=== PATIENT | male | born 1950 | race Caucasian/White ===

== ENCOUNTER 2021-09-27 12:43 | Outpatient (CLI) | payer OTHER, SELFPAY ==
--- NOTE | 2021-10-03 12:16 | WPDHOLTEREM ---
Holter/Event Monitor Holter/Event Monitor Date of procedure: 10/03/21 Holter/Event Procedure: 48 Hr Holter Monitor Diagnosis: Dizziness Indications: Dizziness Image/Tracing Quality: Favorable Finding: The basic rhythm is sinus with normal MA QRS and QT interval. The heart rate varies from a minimum of 45 to a maximum of 130. The average heart rate was 75. There were no abrupt pauses identified and there were no examples of abnormal AV conduction. Supraventricular ectopic activity was rare. A total of 19 PACs were seen during this 48 hour examination. There were no atrial runs and there were no examples of atrial fibrillation No ventricular ectopic activity of any kind occurred during this exam The patient returned a symptom diary in which no entries were made, presumably he was asymptomatic Conclusion: 1. Essentially unremarkable 48 hour Holter monitor Toni Dewitt MD [facility]
== END 2021-09-27 12:44 | disposition home or self-care (01) ==
PROVIDERS: PCP Family Medicine; Visit Provider Student in an Organized Health Care Education/Training Program
DX: R42 Dizziness and giddiness (principal)
CPT/HCPCS: 93225; 93226

== ENCOUNTER 2022-02-02 09:04 | Outpatient (CLI) | payer OTHER, SELFPAY ==
[2022-02-02 09:25] LABS: Hematocrit 47.6 % (42.0-52.0); Hemoglobin 15.7 g/dL (14.0-18.0); Mean Corpuscular Hemoglobin 28.8 pg (26-34); Mean Corpuscular Volume 87.2 fl (80-100); Mean Platelet Volume 10.9 fl (7.4-10.4); Platelet Count Result 177 k/mm3 (150-375); Red Blood Count 5.46 M/mm3 (4.6-6.20); Red Cell Distribution Width 13.5 % (11.5-14.5); White Blood Count 6.9 K/mm3 (4.5-10.0)
[2022-02-02 09:37] LABS: Alanine Aminotransferase 38 U/L (6-50); Albumin Level 4.6 g/dL (3.5-5.1); Alkaline Phosphatase 78 U/L (38-126); Anion Gap 9 mmol/L (8-16); Aspartate Amino Transferase 37 U/L (17-59); Bilirubin,Total 0.9 mg/dL (0.2-1.3); Blood Urea Nitrogen 22 mg/dL (9-20); Calcium 8.9 mg/dL (8.4-10.2); Carbon Dioxide 26 mmol/L (22-30); Chloride 105 mmol/L (98-107); Cholesterol 174 mg/dL (0-200); Estimated Glomerular Filt Rate 54; Glucose 117 mg/dL (65-110); HDL Direct 39 mg/dL; Potassium 4.3 mmol/L (3.4-5.0); Sodium 140 mmol/L (137-145); Triglycerides 210 mg/dL (<150)
[2022-02-02 09:48] LABS: LDL Cholesterol Direct 90 mg/dL
[2022-02-02 10:07] LABS: Prostate Specific Antigen 1.6 ng/mL (< OR = 4.0)
[2022-02-02 10:37] LABS: Creatinine Urine 191.5 mg/dL
[2022-02-02 10:42] LABS: MALB Creatinine Ratio 19.9 mg/g (0-30); Microalbumin Urine Random 38.2 mg/L (0-16.7)
[2022-02-02 11:24] LABS: Hemoglobin A1C 6.2 % (<5.7)
== END 2022-02-02 09:05 | disposition home or self-care (01) ==
LOC: ANHLAB 09:07
PROVIDERS: PCP Family Medicine; Visit Provider Family Medicine
DX: E78.2 Mixed hyperlipidemia (principal); E11.9 Type 2 diabetes mellitus without complications; Z12.5 Encounter for screening for malignant neoplasm of prostate; Z13.220 Encounter for screening for lipoid disorders
CPT/HCPCS: 36415; 80048; 80061; 80076; 82043; 83036; 84153; 85027; G0103

== ENCOUNTER 2023-02-07 08:18 | Outpatient (CLI) | payer OTHER, SELFPAY ==
[2023-02-07 09:15] LABS: Hematocrit 48.3 % (42.0-52.0); Hemoglobin 15.2 g/dL (14.0-18.0); Mean Corpuscular HGB Conc 31.5 g/dl (32-36); Mean Platelet Volume 10.8 fl (7.4-10.4); Platelet Count Result 185 k/mm3 (150-375); Red Blood Count 5.43 M/mm3 (4.6-6.20); Red Cell Distribution Width 14.8 % (11.5-14.5); White Blood Count 6.2 K/mm3 (4.5-10.0)
[2023-02-07 09:53] LABS: Vitamin D 25 Hydroxy 83.8 ng/mL
[2023-02-07 09:54] LABS: LDL Cholesterol Direct 79 mg/dL
[2023-02-07 10:08] LABS: Alanine Aminotransferase 41 U/L (6-50); Albumin Level 4.4 g/dL (3.5-5.1); Alkaline Phosphatase 85 U/L (38-126); Anion Gap 9 mmol/L (8-16); Aspartate Amino Transferase 38 U/L (17-59); Bilirubin,Total 1.2 mg/dL (0.2-1.3); Blood Urea Nitrogen 24 mg/dL (9-20); Calcium 9.2 mg/dL (8.4-10.2); Carbon Dioxide 29 mmol/L (22-30); Chloride 104 mmol/L (98-107); Cholesterol 167 mg/dL (0-200); Estimated Glomerular Filt Rate 50; Glucose 113 mg/dL (65-110); HDL Direct 51 mg/dL; Potassium 4.6 mmol/L (3.4-5.0); Sodium 142 mmol/L (137-145); Triglycerides 132 mg/dL (<150)
[2023-02-07 10:17] LABS: MALB Creatinine Ratio 25.8 mg/g (0-30)
[2023-02-08 17:07] LABS: Prostate Specific Antigen 1.6 ng/mL (< OR = 4.0)
== END 2023-02-07 08:19 | disposition home or self-care (01) ==
LOC: ANHLAB 08:20
PROVIDERS: PCP Family Medicine; Visit Provider Family Medicine
DX: E11.21 Type 2 diabetes mellitus with diabetic nephropathy (principal); E78.2 Mixed hyperlipidemia; R25.1 Tremor, unspecified; E55.9 Vitamin D deficiency, unspecified; Z13.220 Encounter for screening for lipoid disorders; Z12.5 Encounter for screening for malignant neoplasm of prostate
CPT/HCPCS: 36415; 80048; 80061; 80076; 82043; 82306; 83036; 84153; 84443; 85027; G0103

== ENCOUNTER 2023-05-02 08:17 | Outpatient (CLI) | payer OTHER, SELFPAY ==
--- NOTE | ~2023-05-02 | US_ITS ---
EXAMINATION: US renal BI DATE: 05/02/2023 09:47 INDICATION: Stage IIIa chronic kidney disease TECHNIQUE: Multiple ultrasound grayscale images of the kidneys were obtained. COMPARISON: None. FINDINGS: The right kidney measures 10.2 x 5.5 x 4.5 cm. The left kidney measures 9.8 x 6.1 x 5.1 cm. The kidne ys demonstrate normal echogenicity. There is no hydronephrosis in either kidney. No stones identifie d. Prostatomegaly which impresses upon the base of the otherwise normal-appearing bladder. IMPRESSION: 1. Normal kidneys without hydronephrosis. Reviewed, dictated and finalized at location A. R MENDER
== END 2023-05-02 08:18 | disposition home or self-care (01) ==
PROVIDERS: PCP Family Medicine; Visit Provider Internal Medicine Nephrology
DX: N18.31 Chronic kidney disease, stage 3a (principal); E11.9 Type 2 diabetes mellitus without complications
CPT/HCPCS: 76775

== ENCOUNTER 2023-05-15 10:35 | Outpatient (CLI) | payer OTHER, SELFPAY ==
[2023-05-15 11:17] LABS: Albumin Level 4.2 g/dL (3.5-5.1); Anion Gap 8 mmol/L (8-16); Blood Urea Nitrogen 19 mg/dL (9-20); Calcium 9.2 mg/dL (8.4-10.2); Carbon Dioxide 25 mmol/L (22-30); Chloride 106 mmol/L (98-107); Estimated Glomerular Filt Rate > 60; Glucose 111 mg/dL (65-110); Phosphorus 3.5 mg/dL (2.5-4.5); Potassium 4.2 mmol/L (3.4-5.0); Sodium 139 mmol/L (137-145)
[2023-05-15 11:19] LABS: Creatinine Urine 157.4 mg/dL; Total Protein Urine Random 8 mg/dL; Ur Ttl Prot Creatinine Ratio 0.05 mg/mg (0-0.20)
[2023-05-15 11:22] LABS: Sodium Urine Random 87 meq/L
[2023-05-15 11:26] LABS: Complement C3 134 mg/dL (88-165)
[2023-05-17 20:24] LABS: Anti Glomerular Basement Memb <1.0 AI (<1.0)
[2023-05-18 16:49] LABS: Albumin 3.8 g/dL (3.8-4.8); Alpha 1 Globulin 0.2 g/dL (0.2-0.3); Alpha 2 Globulin 0.9 g/dL (0.5-0.9); Beta 1 Globulin 0.4 g/dL (0.4-0.6); Protein, Total 6.7 g/dL (6.1-8.1)
[2023-05-20 21:42] LABS: ANCA Screen Negative (Negative)
[2023-05-21 00:23] LABS: Creatinine, Random Urine 146 mg/dL (20-320); Total Protein/Creatinine Ratio 75 mg/g creat (25-148)
== END 2023-05-15 10:36 | disposition home or self-care (01) ==
PROVIDERS: PCP Family Medicine; Visit Provider Internal Medicine Nephrology
DX: E11.9 Type 2 diabetes mellitus without complications (principal); N18.31 Chronic kidney disease, stage 3a
CPT/HCPCS: 36415; 80069; 82570; 83520; 84155; 84156; 84165; 84166; 84300; 86036; 86038; 86160; 86225

== ENCOUNTER 2023-11-20 12:15 | Outpatient (CLI) | payer OTHER, SELFPAY ==
[2023-11-20 13:06] LABS: Albumin Level 4.4 g/dL (3.5-5.1); Anion Gap 11 mmol/L (4-12); Blood Urea Nitrogen 16 mg/dL (9-20); Calcium 9.1 mg/dL (8.4-10.2); Carbon Dioxide 27 mmol/L (22-30); Chloride 100 mmol/L (98-107); Estimated Glomerular Filt Rate 59; Glucose 141 mg/dL (65-110); Phosphorus 2.8 mg/dL (2.5-4.5); Potassium 3.9 mmol/L (3.4-5.0); Sodium 138 mmol/L (137-145)
[2023-11-20 13:06] LABS: Creatinine Urine 80.6 mg/dL; Total Protein Urine Random 9 mg/dL; Ur Ttl Prot Creatinine Ratio 0.11 mg/mg (0-0.20)
== END 2023-11-20 12:16 | disposition home or self-care (01) ==
LOC: ANHLAB 12:17
PROVIDERS: PCP Family Medicine; Visit Provider Internal Medicine Nephrology
DX: I12.9 Hypertensive chronic kidney disease with stage 1 through stage 4 chronic kidney disease, or unspecified chronic kidney disease (principal); N18.2 Chronic kidney disease, stage 2 (mild); E11.22 Type 2 diabetes mellitus with diabetic chronic kidney disease
CPT/HCPCS: 36415; 80069; 82570; 84156

== ENCOUNTER 2024-01-08 08:06 | Outpatient (CLI) | payer OTHER, SELFPAY ==
--- NOTE | 2024-01-08 13:05 | WPDPFTINT ---
PFT Procedure Performed PFT Procedure Performed Spirometry with Pre/Post Bronchodilator Plethysmography (Lung Vol) Diffusing Cap (DLCO) Flow Vol Loop PFT Interpretation This is a pulmonary function test with pre and post-bronchodilator spirometry, plethysmography and diffusing capacity. The test was performed and results interpreted in accordance with the 2019 and 2005 ATS/ERS Task Force guidelines respectively using the Global Lung Function Initiative-2012 reference equations. Patient demonstrated good effort and cooperation. Reproducibility criteria were met. The quality of the pre bronchodilator spirometry maneuver was Grade B and post bronchodilator spirometry maneuver was Grade A. Findings: Spirometry: The contour the inspiratory and expiratory flow tracing are normal. The pre bronchodilator FVC is 2.82 L, 71% predicted. The pre bronchodilator FEV1 is 2.33 L, 78% predicted. The pre bronchodilator FEV1: FVC ratio is 82%. The post bronchodilator FVC is 3.27 L, representing a 16% increase. The post bronchodilator FEV1 is 2.62 L, representing a 13% increase. The post bronchodilator FEV1: FVC ratio is 80%. Plethysmography: The total lung capacity is 6.63 L, 97% predicted. The functional residual capacity is 3.41 L, 94% predicted. The residual volume is 3.25 L, 131% predicted. The residual volume: Total lung capacity ratio is 49%. Diffusing capacity: The diffusing capacity unadjusted for hemoglobin and carboxyhemoglobin is 19.0, 76% predicted. The diffusing capacity adjusted for alveolar volume is 3.65, 94% predicted. Impression: The spirometry is normal without evidence of an obstructive abnormality. The increase in residual volume to total lung volume ratio is consistent with hyperinflation. The FEV1 is normal with a mildly decreased FVC without and obstructive or restrictive abnormality. This is an abnormal but nonspecific finding. There is significant improvement after inhaling a single dose of albuterol. The diffusing capacity is normal. There are no prior studies for comparison
== END 2024-01-08 08:07 | disposition home or self-care (01) ==
PROVIDERS: PCP Family Medicine; Visit Provider Family Medicine
DX: J44.9 Chronic obstructive pulmonary disease, unspecified (principal); R06.09 Other forms of dyspnea
CPT/HCPCS: 94060; 94726; 94729

== ENCOUNTER 2024-02-11 09:43 | Outpatient (CLI) | payer OTHER, SELFPAY ==
[2024-02-11 10:05] LABS: Hematocrit 43.6 % (42.0-52.0); Hemoglobin 14.9 g/dL (14.0-18.0); Mean Corpuscular HGB Conc 34.2 g/dl (32-36); Mean Corpuscular Hemoglobin 29.1 pg (26-34); Mean Corpuscular Volume 85.2 fl (80-100); Mean Platelet Volume 10.6 fl (7.4-10.4); Platelet Count Result 188 k/mm3 (150-375); Red Blood Count 5.12 M/mm3 (4.6-6.20); Red Cell Distribution Width 13.2 % (11.5-14.5); White Blood Count 4.9 K/mm3 (4.5-10.0)
[2024-02-11 10:14] LABS: Alanine Aminotransferase 42 U/L (6-50); Albumin Level 4.5 g/dL (3.5-5.1); Alkaline Phosphatase 87 U/L (38-126); Aspartate Amino Transferase 40 U/L (17-59); Bilirubin,Total 0.8 mg/dL (0.2-1.3); Cholesterol 149 mg/dL (0-200); HDL Direct 40 mg/dL; Triglycerides 285 mg/dL (<150)
[2024-02-11 10:25] LABS: LDL Cholesterol Direct 65 mg/dL
[2024-02-11 10:45] LABS: Prostate Specific Antigen 1.7 ng/mL (< OR = 4.0)
== END 2024-02-11 09:44 | disposition home or self-care (01) ==
LOC: ANHLAB 09:44
PROVIDERS: PCP Family Medicine; Visit Provider Family Medicine
DX: N18.31 Chronic kidney disease, stage 3a (principal); E11.22 Type 2 diabetes mellitus with diabetic chronic kidney disease; E78.2 Mixed hyperlipidemia; R06.09 Other forms of dyspnea; Z12.5 Encounter for screening for malignant neoplasm of prostate; Z13.220 Encounter for screening for lipoid disorders
CPT/HCPCS: 36415; 80061; 80076; 84153; 84443; 85027; G0103

== ENCOUNTER 2024-05-01 10:26 | Outpatient (CLI) | payer OTHER, SELFPAY ==
[2024-05-01 10:50] LABS: Basophils Percent Auto 0.6 % (0.2-1.2); Eosinophils Absolute Auto 0.2 K/mm3 (0-0.3); Eosinophils Percent Auto 3.2 % (0-4.4); Hematocrit 40.5 % (42.0-52.0); Hemoglobin 13.1 g/dL (14.0-18.0); Immature Granulocyte Absolute 0.03 K/mm3 (0.00-0.031); Immature Granulocyte Percent A 0.5 % (0-0.5); Lymphocytes Absolute Auto 0.98 K/mm3 (0.9-3.2); Lymphocytes Percent Auto 15.9 % (18.3-44.2); Mean Corpuscular HGB Conc 32.3 g/dl (32-36); Mean Corpuscular Hemoglobin 27.8 pg (26-34); Mean Platelet Volume 10.3 fl (7.4-10.4); Monocytes Absolute Auto 0.6 K/mm3 (0.1-0.6); Monocytes Percent Auto 10.4 % (2.6-8.5); Neutrophils Absolute Auto 4.3 K/mm3 (1.3-6.7); Neutrophils Percent Auto 69.4 % (45.5-73.1); Platelet Count Result 216 k/mm3 (150-375); Red Blood Count 4.71 M/mm3 (4.6-6.20); Red Cell Distribution Width 13.2 % (11.5-14.5); White Blood Count 6.2 K/mm3 (4.5-10.0)
[2024-05-01 11:01] LABS: Alanine Aminotransferase 35 U/L (6-50); Albumin Level 4.1 g/dL (3.5-5.1); Alkaline Phosphatase 90 U/L (38-126); Anion Gap 9 mmol/L (4-12); Aspartate Amino Transferase 32 U/L (17-59); Bilirubin,Total 0.7 mg/dL (0.2-1.3); Blood Urea Nitrogen 23 mg/dL (9-20); Calcium 8.8 mg/dL (8.4-10.2); Carbon Dioxide 27 mmol/L (22-30); Chloride 105 mmol/L (98-107); Estimated Glomerular Filt Rate > 60; Glucose 117 mg/dL (65-110); Potassium 4.2 mmol/L (3.4-5.0); Sodium 141 mmol/L (137-145)
--- OUTSIDE RECORDS SUMMARY | 2024-05-02 04:19 | XMS_ITS | Referral Summary ---
Author Organization [facility] [place] [address] Address [address] [place] [address] Care Team Providers Care Dual Hose Cementer Name Role Phone Cristi Toledo MD Primary Care Provider + [phone] Allergies No known active allergies Medications aspirin 81 mg enteric coated tablet Take 1 tablet (81 mg total) by mouth daily 2 Active nitroglycerin (NITROSTAT) 0.[address] 1 tablet (0.4 mg total) under the tongue every 5 (five) minutes as needed 2 Active metFORMIN XR (GLUCOPHAGE XR) 500 mg 24 hr tablet Take 1 tablet (500 mg total) by mouth daily 2 Active rosuvastatin (CRESTOR) 40 mg tablet Take 1 tablet (40 mg total) by mouth nightly at bedtime 2 Active omeprazole (PriLOSEC) 20 mg capsule Take 1 tablet by mouth daily 2 Active cholecalciferol (VITAMIN D-3) 25 mcg (1,000 unit) tablet Take 1 tablet (1,000 Units total) by mouth daily 9 Active multivitamin with minerals tablet Take 1 tablet by mouth daily Active metoprolol XL (TOPROL-XL) 25 mg extended release tablet Take 0.5 tablets (12.5 mg total) by mouth daily 15 tablet 3 Active losartan (COZAAR) 25 mg tablet Take 1 tablet (25 mg total) by mouth daily Active triamcinolone (KENALOG) 0.5 % cream Apply topically 2 (two) times a day APPLY TO AFFECTED AREA 4 Active Active Problems Problem Noted Date Diagnosed Date H/O syncope 05/16/2022 Coronary artery disease invo lving [place] coronary artery of [place] heart without angina pectoris 02/07/2022 Hypertension associated with diabetes 02/07/2022 Mixed diabetic hyperlipidemi a associated with type 2 diabetes mellitus 02/07/2022 S/P coronary artery stent placement 02/07/2022 Social History Tobacco Use Types Packs/Day Years Used Date Smoking Tobacco: Never Tobacco Cessation:Counseling Given: Not Answered Personal Safety Answer Date Recorded Getting School Help Needed Not on file 06/23 Sex and Gender Information Value Date Recorded Sex Assigned at Not on file Legal Sex Male 1:59 PM CDT Gender Identity Not on file Sexual Orientation Not on file Last Filed Vital Signs Vital Sign Reading Time Taken Comments Blood Pressure 110/64 07/23/2023 10:32 AM CDT Pulse 82 07/23/2023 10:32 AM CDT Temperature - - Respiratory Rate 16 02/07/2022 8:25 AM CDT Oxygen Saturation 92% 07/23/2023 10:32 AM CDT Inhaled Oxygen Concentration - - Weight 96.6 kg (213 lb) 07/23/2023 10:32 AM CDT Height 177.8 cm (5' 10 ) 07/23/2023 10:32 AM CDT Body Mass Index 30.56 07/23/2023 10:32 AM CDT Plan of Treatment Not on file Procedures Procedure Name Priority Date/Time Associated Diagnosis Comments POCT LIPID PANEL Routine 01/19/2023 12:2 8 PM CDT Coronary artery disease involving [place] coronary artery of [place] heart without angina pectoris Mixed diabetic hyperlipidemia associated with type 2 diabetes mellitus (HCC) from Last 3 Months or Most Recently Relevant to Health Maintenance Results * POCT lipid panel (01/19/2023 12:28 PM CDT) Cholesterol, POC 128 mg/dL Comment:GLU = 115 HDL, POC 37 mg/dL Triglycerides, POC 216 mg/dL LDL Cholesterol POC 48 mg/dL Chol/HDL Ratio, POC 1.3 Non-HDL Cholesterol, POC 91 mg/dL Cholesterol Total, POC 128 mg/dL Capillary blood 01/19/2023 1 2:28 PM CDT Tino Cortez MD POINT OF CARE TEST ORDER MAX Final Result from Last 3 Months or Most Recently Relevant to Health Maintenance Insurance [facility] Care Teams Dual Hose Cementer Relationship Specialty Start Date End Date Cristi Toledo MD PCP - General Family Medicine 09/27/21
--- OUTSIDE RECORDS SUMMARY | 2024-05-02 04:19 | XMS_ITS | Clinical Summary ---
Author Organization [facility] Address [address] [place] [address] Phone Care Team Providers Care Positive Printer Operator Name Role Phone Unavailable Primary Care Provider Unavailabl e Allergies No known active allergies Medications No known medications Social History Tobacco Use Types Packs/Day Years Used Date Smoking Tobacco: Unknown Tobacco Cessation:Counseling Given: Not Answered Sex and Gender Information Value Date Recorded Sex Assigned at Not on file Legal Sex Male 12:00 PM CDT Gender Identity Not on file Sexual Orientation Not on file Last Filed Vital Signs Vital Sign Reading Time Taken Comments Blood Pressure 113/69 02/03/2022 1:41 PM CDT Pulse 71 02/03/2022 12:37 PM CDT Temperature 36.4 ??C (97.6 ??F) 02/03/2022 12:11 PM C DT Respiratory Rate 14 02/03/2022 1:41 PM CDT Oxygen Saturation 93% 02/03/2022 1:41 PM CDT Inhaled Oxygen Concentration - - Weight 93 kg (205 lb) 02/03/2022 12:11 PM CDT Height 177.8 cm (5' 10 ) 02/03/2022 12:11 PM CDT Body Mass Index 29.41 02/03/2022 12:11 PM CDT Plan of Treatment Health Maintenance Due Date Last Done Comments DIABETES ANNUAL FOOT EXAM 1967 DIABETES ANNUAL RETINAL EXAM 1967 DIABETES MICROALBUMIN ANNUAL SCREEN 1967 LDL CHOLESTEROL ANNUAL 1967 DTAP/TDAP/TD VACCINES (1 - Tdap) 1968 COLORECTAL SCREENING 1994 Colorectal Cancer Screening 1994 FIT-DNA Q 3 years 1994 FIT/FOBT Q 1 year 1994 Flex Sig/CT Colonography Q 5 years 1994 ZOSTER VACCINE (1 of 2) 1999 DIABETES HBA1C Q 6 MONTHS 02/04/2021 08/05/2020 INFLUENZA VACCINE (#1) 2023 RSV VACCINE (60+ or ) (1 - 1-dose 75+ series) 2024 PNEUMOCOCCAL VACCINE 65+ YEARS Completed 10/08/2018 , 09/22/2016 Insurance [facility]
--- OUTSIDE RECORDS SUMMARY | 2024-05-02 04:19 | XMS_ITS | Clinical Summary ---
Author Organization [facility] [place] [address] Address [address] [place] [address] Care Team Providers Care Medical Clinic Manager Name Role Phone Cristi Toledo MD Primary Care Provider + [phone] Allergies No known active allergies Medications aspirin [...] syncope 05/16/2022 Coronary artery disease invo lving [place] coronary artery of [place] heart without angina pectoris 02/07/2022 Hypertension associated with diabetes 02/07/2022 Mixed diabetic hyperlipidemi a associated with type 2 diabetes mellitus 02/07/2022 S/P coronary artery stent placement 02/07/2022 Surgical History Surgery Date Site/Laterality Comments CARDIAC CATHETERIZATION CORONARY ANGIOPLASTY Medical History Medical History Date Comments Hyperlipidemia Hypertension Diabetes mellitus (HCC) Coronary artery disease Family History Medical History Relation Name Comments blood disease Brother Heart disease Father Other Half-Brother Heart disease Mother Relation Name Status Comments Brother Father Half-Brother Mother Social History Tobacco Use Types Packs/Day Years Used Date Smoking Tobacco: Never Tobacco Cessation:Counseling Given: Not Answered Personal Safety Answer Date Recorded Getting School Help Needed Not on file 06/23 Sex and Gender Information Value Date Recorded Sex Assigned at Not on file Legal Sex Male 1:59 PM CDT Gender Identity Not on file Sexual Orientation Not on file Obstetrics History Last Filed Vital Signs Vital Sign Reading [...] 07/23/2023 10:32 AM CDT Plan of Treatment Health Maintenance Due Date Last Done Comments Albumin Creatinine Ratio, Urine 1949 Colon Cancer Screening-Colonoscopy 1949 Depression Screening 1949 Fall Risk Assessment 1949 Hemoglobin A1C 1949 Hepatitis C Screening 1949 eGFR 1949 Dilated Eye Exam 1949 Foot Exam 1949 DTaP/Tdap/Td Vaccine (1 - Tdap) 1960 Hepatitis B Screening 1967 Zoster Vaccine (1 of 2) 1999 Well Visit 65+ 2014 Covid-19 Vaccine (3 - 2024-25 season) 2023, 04/11/2021 Influenza Vaccine (#1) 2023 Lipid Panel 01/20/2024 01/19/2023, 07/15/2021 Pneumococcal vaccine 65+ Completed 10/08/2018, 09/07 Procedures Procedure Name Priority Date/Time Associated Diagnosis Comments POCT LIPID PANEL Routine 01/19/2023 12:2 8 PM CDT Coronary artery disease involving [place] coronary artery of [place] heart without angina pectoris Mixed diabetic hyperlipidemia [...] Most Recently Relevant to Health Maintenance Insurance [facility] Care Teams Medical Clinic Manager Relationship Specialty Start Date End Date Cristi Toledo MD PCP - General Family Medicine 09/27/21
--- OUTSIDE RECORDS SUMMARY | 2024-05-02 04:19 | XMS_ITS | Clinical Summary ---
Author Organization [facility] Address [address] [place] [address] [place] [address] Care Team Providers Care Family Specialist Name Role Phone Galen Turcios DO Primary Care Provider + Giorgio Fernandes MD Unavailable [phone] Allergies No known active allergies Medications Blood Glucose Monitoring Suppl (BLOOD GLUCOSE MONITOR SYSTEM) w/Device KitIndications:T ype 2 diabetes mellitus without complication, without long-term current use of insulin ([facility]) 1 Units by Does not apply route daily. 1 kit 9 Active vitamin D3, cholecalciferol, 1000 UNIT Tab tablet Take 1 tablet (1,000 Units total) by mouth daily. 9 Active Melatonin 10 MG Cap Active rosuvastatin 40 MG tablet Take 1 tablet (40 mg total) by mouth nightly at bedtime. 90 tablet 4 1 Active Microlet Lancets MiscIndications: Type 2 diabetes mellitus without complication, without long-term current use of insulin ([facility]) USE TO TEST FOUR TIMES DAILY NEEDED *PT NEEDS APPT FOR FURTHER REFILLS* 400 each 3 1 Active ASPIRIN EC 81 MG tablet Take 81 mg by mouth daily. 2 Active metoprolol succinate ER (TOPROL-XL) 25 MG 24 hr tablet TAKE 1 TABLET BY MOUTH EVERY DAY 90 tablet 3 2 Active omeprazole (PRILOSEC) 20 MG capsule TAKE 1 CAPSULE BY MOUTH EVERY DAY 90 capsule 1 2 Active metFORMIN ER (GLUCOPHAGE-XR) 500 MG 24 hr tabletIndication s:Type 2 diabetes mellitus without complication, without long-term current use of insulin ([facility]) TAKE 1 TABLET (500 MG TOTAL) BY MOUTH DAILY WITH BREAKFAST. PATIENT MUST BE SEEN FOR FURTHER REFILLS 14 tablet 2 Active isosorbide mononitrate ER (IMDUR) 30 MG 24 hr tablet Take 1 tablet (30 mg total) by mouth daily. CALL FOR AN APPOINTMENT 15 tablet 3 Active losartan (COZAAR) 25 MG tabletIndication s:S/P PTCA (percutaneous transluminal coronary angioplasty),Cor onary artery disease involving [place] coronary artery of [place] heart without angina pectoris,Type 2 diabetes mellitus with stage 2 chronic kidney disease, without long-term current use of insulin ([facility]) TAKE 1 TABLET (25 MG TOTAL) BY MOUTH DAILY. CALL FOR AN APPOINTMENT 30 tablet 4 Active Glucose Blood (BLOOD GLUCOSE TEST STRIPS 333) StripIndications :Type 2 diabetes mellitus without complication, without long-term current use of insulin ([facility]) 1 strip by In Vitro route 4 (four) times daily before meals and nightly. TEST BLOOD SUGAR BEFORE MEALS AND AT BEDTIME PATIENT MUST BE SEEN FOR FURTHER REFILLS 100 strip 3 4 Active Active Problems Problem Noted Date Diagnosed Date Other fatigue 11/22/2020 Precordial pain 11/22/2020 Hypertension associated with type 2 diabetes mellitus ([facility]) 08/03/2020 Hyperlipidemia associated wi th type 2 diabetes mellitus ([facility]) 08/03/2020 Overweight 07/19/2018 On statin therapy 07/19/2018 Antiplatelet or antithrombotic long-term use 03/2019 Vertigo 07/19/2018 Vasovagal episode 07/19/2018 Family history of coronary arteriosclerosis 07/08 Type 2 diabetes mellitus wit h chronic kidney disease, without long-term current use of insulin ([facility]) 07/03/2018 Vitamin D deficiency 07/03/2018 Changing skin lesion 09/22/2016 Dyspnea, unspecified type 09/22/2016 Hyperlipidemia, mixed 11/18/2013 Hearing loss 11/13/2013 Polyarthralgia 11/13/2013 Resolved Problems Problem Noted Date Diagnosed Date Resolved Date Stage 3a chronic kidney dise ase ([facility]) 08/05/2020 11/22/2020 Immunizations Name Administration Dates Next Due Influenza Adult (Generic) 04/16/2020(Deferred: P atient Refused) Pneumococcal (Pneumovax 23) 09/22/2016 Pneumococcal (Prevnar 13) 10/08/2018 Family History Medical History Relation Comments Diabetes Brother 1 Colon Cancer Brother 2 Parkinson's Disease Brother 3 CABG Father x3 Coronary artery disease Father Heart Attack Father Hyperlipidemia Father Hypertension Father CHF Mother Heart Attack Mother Heart Disease Mother Hypertension Mother Heart Attack Paternal Grandfather Heart Attack Paternal Grandmother Relation Status Comments Brother 1 Alive Brother 2 Brother 3 Alive Father (Age 76) Maternal Grandfather Maternal Grandmother Mother (Age 88) Paternal Grandfather (Age 60) Paternal Grandmother (Age 90) Social History Tobacco Use Types Packs/Day Years Used Date Smoking Tobacco: Former Cigarettes 1.5 15 1 1988 Smokeless Tobacco: Never Alcohol Use Standard Drinks/Week Comments Yes 0 (1 standard drink = 0.6 oz pur e alcohol) occasionally AUDIT-C Answer Date Recorded Frequency of Alcohol Consumption Never 06/18/2018 Average Number of Drinks Not on file 019 Frequency of Binge Drinking Not on file 06/07 PHQ-2 Answer Date Recorded PHQ-2 Score - If the patient scores above 3, please move on to questions 3-9 0 09/22/2021 Sex and Gender Information Value Date Recorded Sex Assigned at Not on file Legal Sex Male 9:18 PM CDT Gender Identity Not on file Sexual Orientation Not on file 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 Not on file Not on file Not on file Last Filed Vital Signs Vital Sign Reading Time Taken Comments Blood Pressure 100/65 09/22/2021 10:03 AM CDT Pulse 100 09/22/2021 10:03 AM CDT Temperature 36.6 ??C (97.9 ??F) 09/22/2021 10:03 AM C DT Respiratory Rate 16 09/22/2021 10:03 AM CDT Oxygen Saturation 99% 09/22/2021 10:03 AM CDT Inhaled Oxygen Concentration - - Weight 91.6 kg (202 lb) 09/22/2021 10:03 AM CDT Height 177.8 cm (5' 10 ) 09/22/2021 10:03 AM CDT Body Mass Index 28.98 09/22/2021 10:03 AM CDT Plan of Treatment Health Maintenance Due Date Last Done Comments ASCVD Statin 1950 Kidney Health Evaluation 1950 PHQ-2 (Physician [place]) 1961 Hepatitis C 1967 Zoster Vaccines (1 of 2) 1999 Annual Medicare Wellness Visit 2014 Hemoglobin A1C 02/03/2021 08/04/2020, 11/2020, 05/02/2019, Additional history exists ASCVD LDL 07/15/2022 07/15/2021, 11/08, 04/16/2020, Additional history exists Lipid Panel 07/15/2022 07/15/2021, 11/08, 04/16/2020, Additional history exists Diabetes: Retinopathy Eye Exam 12/10/2022 12/10/2020, 06/07/2018 COVID-19 Vaccine ( season) 2023 Influenza Adult (#1) 2024 RSV Immunization or 60+ Years (1 - 1-dose 75+ series) 2024 DTaP, Tdap and Td Vaccines (1 - Tdap) 05/02/2028 Postponed from 1968 (Per Provider Recommendation) Colorectal Cancer Screening Colonoscopy (10 Years) 01/17/2029 01/17/2019, 01/17/2019 Pneumococcal Vaccine: 65+ Years Completed 10/08/2018, 09/22/2016 AAA SCREENING Completed 11/29/2020, 08/17/2020 Meningococcal B Vaccine Aged Out No l onger eligible based on patient's age to complete this topic Meningococcal Vaccine Aged Out No viviana whit eligible based on patient's age to complete this topic RSV Immunizations Under 20 Months Aged Out No longer eligible based on patient's age to complete this topic Procedures Procedure Name Priority Date/Time Associated Diagnosis Comments LIPID PANEL Routine 07/15/2021 12:00 PM CDT DIABETIC RETINOPATHY EXAM (NEGATIVE)(SCAN ORDER) Routine 12/10/2020 USV AAA SCREENING Routine 11/29/2020 7:4 4 AM CDT Precordial pain Type 2 diabetes mellitus with stage 2 chronic kidney disease, without long-term current use of insulin ([facility]) Hyperlipidemia, mixed Other fatigue Dyspnea, unspecified type Dizziness CISNEROS (dyspnea on exertion) Unstable angina ([facility]) Former cigarette smoker HEMOGLOBIN, GLYCOSYLATED Routine 08/04/2020 1:03 PM CDT Type 2 diabetes mellitus without complication, without long-term current use of insulin ([facility]) COLONOSCOPY GENERIC (SCAN ORDER) Routine 01/17/2019 from Last 3 Months or Most Recently Relevant to Health Maintenance Results * LIPID PANEL (07/15/2021 12:00 PM CDT) CHOLESTEROL 149 MG/DL 07/15/2021 6:24 PM CDT [facility] Comment:DESIRABLE: <200 TRIGLYCERIDES 171 MG/DL 07/15/2021 6:24 PM CDT [facility] Comment:150-199 BORDERLINE H IGH HDL 43 >39 MG/DL 07/15/2021 6:24 PM CDT [facility] LDL (CALCULATED) 72 MG/DL 07/16/19 22 6:24 PM CDT [facility] Comment:<100 OPTIMAL VLDL CALCULATION 34 MG/DL 07/16/19 22 6:24 PM CDT [facility] Comment:REFERENCE RANGE NOT ESTABLISHED CHOL/HDL RATIO 3.5 07/15/2021 6:24 PM CDT [facility] Comment:REFERENCE RANGE NOT ESTABLISHED LDL/HDL 1.7 07/15/2021 6:24 PM CDT [facility] Comment:REFERENCE RANGE NOT ESTABLISHED NON HDL CHOLESTEROL 106 MG/DL 07/15/2021 6:24 PM CDT [facility] Comment:REFERENCE RANGE NOT ESTABLISHED 07/15/2021 12:0 0 PM CDT Naga Moore MD,PHD LABORATORY Final Re sult [facility] [address] [place] [id number], [id number] * DIABETIC RETINOPATHY EXAM (NEGATIVE)(SCAN) (12/10/2020) us Documents Scanned SCANNING Final Result [facility] ONBASE * USV AAA SCREENING (11/29/2020 7:44 AM CDT) Anatomical Region Laterality Modality NA Vascular Ultraso und 11/29/2020 7:33 AM CDT Narrative 11/29/2020 11:08 AM CDT ?[facility] ILIAC DUPLEX ? VASCULAR LAB Pat.Name: ??JUANCHO DANG ?Pat.ID: ?[id number] ? St.Date: ?? 11/29/2020 ? Refer.MD: ??Galen Turcios ? Exam Time: 7:33:00 AM ? Study Type:KHUSHBU VS Aorta IVC Iliac Duplex Uni Height: ?70in ?Age: ??1950,70Y ? Sex: ? MALE ?Sonogrphr: Rebekah Pelaez, RDMS, RVT Pat. Stat.:Outpatient ? History / Clinical: AAA screening. PMH- asa. DM. HLD. HTN. CKD. xtob. BMI 28. No priors Procedures: ??Chow scale, Color Doppler imaging, Doppler Spectral Analysis Race: ?W ? ++++++++++++++++++++++++++++++++++++ SUMMARY: ++++++++++++++++++++++++++++++++++++ AAA SCREENING EXAM: Maximum aorta diameter is 1.81 x 1.83 cm. ??Mild plaque is noted. ?? CONCLUSION: ?? No abdominal aorta aneurysm present. The iliac arteries are within normal range bilaterally. Recommend follow up prn unless clinically indicated. ++++++++++++++++++++++++++++++++++++ FINDINGS: ++++++++++++++++++++++++++++++++++++ ++++++++++++++++++++++++++++++++++++ MEASUREMENTS: ++++++++++++++++++++++++++++++++++++ ?DOPPLER Juxta AO ?? Juxta AO PSV ?90 cm/s ?Juxta AO Dim 2 ??1.83 cm ?? Juxta AO Dim 1 ??1.81 cm ? Dist AO ?? Dist AO PSV ?154 cm/s ?Dist AO Dim 2 ?? 1.52 cm ?? Dist AO Dim 1 ?? 1.37 cm ? Rt Prox Common Iliac ?? Common Iliac Di ??0.98 cm ? Common Iliac Di ??1.03 cm ?? Lt Prox Common Iliac ?? Common Iliac Di ??0.98 cm ? Common Iliac Di ??1.16 cm ?? Signed 11/29/2020 11:08 AM Yobani Buckley M.D. Procedure Note Yobani Buckley MD - 11/29/2020 [facility] Pat.Name: JUANCHO DANG Pat.ID: [id number] .Date: 11/29/2020 Refer.MD: Galen Turcios Exam Time: 7:33:00 AM Study Type:KHUSHBU VS Aorta IVC Iliac Duplex Uni Height: 70in Age: 12 1950,70Y Sex: MALE Sonogrphr: Rebekah Pelaez RDMS, RVT Pat. Stat.:Outpatient History / Clinical: AAA screening. PMH- asa. DM. HLD. HTN. CKD. xtob. BMI 28. No priors Procedures: Chow scale, Color Doppler imaging, Doppler Spectral Analysis Race: W ++++++++++++++++++++++++++++++++++++ SUMMARY: ++++++++++++++++++++++++++++++++++++ AAA SCREENING EXAM: Maximum aorta diameter is 1.81 x 1.83 cm. Mild plaque is noted. CONCLUSION: No abdominal aorta aneurysm present. The iliac arteries are within normal range bilaterally. Recommend follow up prn unless clinically indicated. ++++++++++++++++++++++++++++++++++++ FINDINGS: ++++++++++++++++++++++++++++++++++++ ++++++++++++++++++++++++++++++++++++ MEASUREMENTS: ++++++++++++++++++++++++++++++++++++ DOPPLER Juxta AO Juxta AO PSV 90 cm/s Juxta AO Dim 2 1.83 cm Juxta AO Dim 1 1.81 cm Dist AO Dist AO PSV 154 cm/s Dist AO Dim 2 1.52 cm Dist AO Dim 1 1.37 cm Rt Prox Common Iliac Common Iliac Di 0.98 cm Common Iliac Di 1.03 cm Lt Prox Common Iliac Common Iliac Di 0.98 cm Common Iliac Di 1.16 cm Signed 11/29/2020 11:08 AM Yobani Buckley M.D. Naga Moore MD,PHD US VASC Final Re sult * (ABNORMAL) HEMOGLOBIN, GLYCOSYLATED (08/04/2020 1:03 PM CDT) HGB A1C 5.8(H) <5.7 % of total [facility] 08/04/2020 1:03 PM CDT 08/04/2020 1:04 PM CDT Galen Turcios DO LABORATORY Final Re sult [facility] [address] [place] [address] * COLONOSCOPY (01/17/2019) Documents Scanned SCANNING Final Result from Last 3 Months or Most Recently Relevant to Health Maintenance Insurance [employer]ENCE E[employer] Advance Directives * Full Code (Latest Code Status on File) Date Activated Date Inactivated Comments 12/08/2020 10:08 AM 12/08/2020 3:10 PM Care Teams Family Specialist Relationship Specialty Start Date End Date Galen Turcios DO [address] [place] [address] PCP - General FAMILY PRACTICE 06/06/18 Giorgio Fernandes MD [address] [place] [address] Kendy Veneer Matcher CARDIOVASCULAR DISEASE 07/05/18
== END 2024-05-01 10:27 | disposition home or self-care (01) ==
PROVIDERS: PCP Family Medicine; Visit Provider Nurse Practitioner Family
DX: R19.7 Diarrhea, unspecified (principal)
CPT/HCPCS: 36415; 80053; 85025

== ENCOUNTER 2024-05-19 10:36 | Outpatient (CLI) | payer OTHER, SELFPAY ==
[2024-05-19 11:10] LABS: Hematocrit 45.3 % (42.0-52.0); Hemoglobin 14.8 g/dL (14.0-18.0); Mean Corpuscular HGB Conc 32.7 g/dl (32-36); Mean Corpuscular Hemoglobin 28.2 pg (26-34); Mean Corpuscular Volume 86.3 fl (80-100); Mean Platelet Volume 10.7 fl (7.4-10.4); Platelet Count Result 191 k/mm3 (150-375); Red Blood Count 5.25 M/mm3 (4.6-6.20); Red Cell Distribution Width 13.7 % (11.5-14.5)
[2024-05-19 11:29] LABS: Albumin Level 4.3 g/dL (3.5-5.1); Anion Gap 11 mmol/L (4-12); Blood Urea Nitrogen 22 mg/dL (9-20); Calcium 9.3 mg/dL (8.4-10.2); Carbon Dioxide 24 mmol/L (22-30); Chloride 105 mmol/L (98-107); Estimated Glomerular Filt Rate > 60; Glucose 185 mg/dL (65-110); Potassium 4.2 mmol/L (3.4-5.0); Sodium 140 mmol/L (137-145)
--- OUTSIDE RECORDS SUMMARY | 2024-05-19 11:29 | XMS_ITS | Clinical Summary ---
Author Organization [facility] Address [address] [place] [address] Phone Care Team Providers Care Elevator Worker Name Role Phone Unavailable Primary Care Provider [...] 71 02/03/2022 12:37 PM CDT Temperature 36.4 C (97.6 F) 02/03/2022 12:11 PM CDT Respiratory Rate 14 02/03/2022 1:41 PM CDT [...] 65+ YEARS Completed 10/08/2018 , 09/22/2016 Insurance [facility]
--- OUTSIDE RECORDS SUMMARY | 2024-05-19 11:29 | XMS_ITS | Clinical Summary ---
Author Organization [facility] Address [address] [place] [address] Care Team Providers Care Copy Manager Name Role Phone MorisjulianaGalen nguyen Ashvin BEAVER Primary Care Provider + Giorgio Fernandes MD Unavailable Allergies No known active allergies Medications Blood Glucose Monitoring Suppl (BLOOD GLUCOSE MONITOR SYSTEM) w/Device KitIndications:T ype 2 diabetes mellitus without complication, without long-term current use of insulin ([facility]) 1 Units by Does not apply route [...] complication, without long-term current use of insulin ([facility]) USE TO TEST FOUR TIMES DAILY NEEDED [...] complication, without long-term current use of insulin ([facility]) TAKE 1 TABLET (500 MG TOTAL) BY MOUTH DAILY WITH BREAKFAST. PATIENT MUST BE SEEN FOR FURTHER REFILLS 14 tablet 2 Active isosorbide mononitrate ER (IMDUR) 30 MG 24 hr tablet Take 1 tablet (30 mg total) by mouth daily. CALL FOR AN APPOINTMENT 15 tablet 3 Active losartan (COZAAR) 25 MG tabletIndication s:S/P PTCA (percutaneous transluminal coronary angioplasty),Cor onary artery disease involving [place] coronary artery of [place] heart without angina pectoris,Type 2 diabetes mellitus with stage 2 chronic kidney disease, without long-term current use of insulin ([facility]) TAKE 1 TABLET (25 MG TOTAL) BY MOUTH DAILY. CALL FOR AN APPOINTMENT 30 tablet 4 Active Glucose Blood (BLOOD GLUCOSE TEST STRIPS 333) StripIndications :Type 2 diabetes mellitus without complication, without long-term current use of insulin ([facility]) 1 strip by In Vitro route 4 (four) times daily before meals and nightly. TEST BLOOD SUGAR BEFORE MEALS AND AT BEDTIME PATIENT MUST BE SEEN FOR FURTHER REFILLS 100 strip 3 4 Active Active Problems Problem Noted Date Diagnosed Date Other fatigue 11/22/2020 Precordial pain 11/22/2020 Hypertension associated with type 2 diabetes mellitus ([facility]) 08/03/2020 Hyperlipidemia associated wi th type 2 diabetes mellitus ([facility]) 08/03/2020 Overweight 07/19/2018 On statin therapy 07/19/2018 Antiplatelet or antithrombotic long-term use 03/2019 Vertigo 07/19/2018 Vasovagal episode 07/19/2018 Family history of coronary arteriosclerosis 07/08 Type 2 diabetes mellitus wit h chronic kidney disease, without long-term current use of insulin ([facility]) 07/03/2018 Vitamin D deficiency 07/03/2018 Changing skin lesion 09/22/2016 Dyspnea, unspecified type 09/22/2016 Hyperlipidemia, mixed 11/18/2013 Hearing loss 11/13/2013 Polyarthralgia 11/13/2013 Resolved Problems Problem Noted Date Diagnosed Date Resolved Date Stage 3a chronic kidney dise ase ([facility]) 08/05/2020 11/22/2020 Immunizations Name Administration Dates Next [...] Smoking Tobacco: Former Cigarettes 1.5 15 1 974 1988 Smokeless Tobacco: Never Alcohol Use Standard [...] 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 Not on file Not on file Last Filed Vital Signs Vital Sign Reading Time Taken Comments Blood Pressure 100/65 09/22/2021 10:03 AM CDT Pulse 100 09/22/2021 10:03 AM CDT Temperature 36.6 C (97.9 F) 09/22/2021 10:03 AM CDT Respiratory Rate 16 09/22/2021 10:03 AM CDT [...] 1950 Kidney Health Evaluation 1950 PHQ-2 (Physician [place]) 1961 Hepatitis C 1967 Zoster Vaccines (1 of 2) 1999 Annual Medicare Wellness Visit 2014 Hemoglobin A1C 02/03/2021 08/04/2020, 01/0 11/2020, 05/02/2019, Additional history exists ASCVD LDL 07/15/2022 07/15/2021, 11/08, 04/16/2020, Additional history exists Lipid Panel 07/15/2022 07/15/2021, 11/08, 04/16/2020, Additional history exists Diabetes: Retinopathy Eye Exam 12/10/2022 12/10/2020, 06/07/2018 COVID-19 Vaccine ( - 2023- season) 2023 Influenza Adult (#1) 2024 RSV Immunization or 60+ Years (1 - 1-dose 75+ series) 2024 PHQ-2 (Physician [place]) 04/09/2024 DTaP, Tdap and Td Vaccines (1 - [...] disease, without long-term current use of insulin ([facility]) Hyperlipidemia, mixed Other fatigue Dyspnea, unspecified type Dizziness CISNEROS (dyspnea on exertion) Unstable angina ([facility]) Former cigarette smoker HEMOGLOBIN, GLYCOSYLATED Routine 08/04/2020 1:03 PM CDT Type 2 diabetes mellitus without complication, without long-term current use of insulin ([facility]) COLONOSCOPY GENERIC (SCAN ORDER) Routine 01/17/2019 from Last 3 Months or Most Recently Relevant to Health Maintenance Results * LIPID PANEL (07/15/2021 12:00 PM CDT) CHOLESTEROL 149 MG/DL 07/15/2021 6:24 PM CDT [facility] Comment:DESIRABLE: <200 TRIGLYCERIDES 171 MG/DL 07/15/2021 6:24 PM CDT [facility] Comment:150-199 BORDERLINE H IGH HDL 43 >39 MG/DL 07/15/2021 6:24 PM CDT [facility] LDL (CALCULATED) 72 MG/DL 07/16/19 22 6:24 PM CDT [facility] Comment:<100 OPTIMAL VLDL CALCULATION 34 MG/DL 07/16/19 22 6:24 PM CDT [facility] Comment:REFERENCE RANGE NOT ESTABLISHED CHOL/HDL RATIO 3.5 07/15/2021 6:24 PM CDT [facility] Comment:REFERENCE RANGE NOT ESTABLISHED LDL/HDL 1.7 07/15/2021 6:24 PM CDT [facility] Comment:REFERENCE RANGE NOT ESTABLISHED NON HDL CHOLESTEROL 106 MG/DL 07/15/2021 6:24 PM CDT [facility] Comment:REFERENCE RANGE NOT ESTABLISHED 07/15/2021 12:0 0 PM CDT us Naga Moore MD,PHD LABORATORY Final Re sult [facility] [address] [place] [address], [place] [phone] [id number] * DIABETIC RETINOPATHY EXAM (NEGATIVE)(SCAN) (12/10/2020) us Documents Scanned SCANNING Final Result [facility] ONBASE * USV AAA SCREENING (11/29/2020 7:44 AM CDT) Anatomical Region Laterality Modality NA Vascular Ultraso und 11/29/2020 7:33 AM CDT Narrative 11/29/2020 11:08 AM CDT [facility] Pat.Name: JOELLE DANG Pat.ID: [id number] .Date: 11/29/2020 Refer.MD: Galen Turcios Exam Time: [...] 11/29/2020 [facility] Pat.Name: JOELLE DANG Pat.ID: [id number] .Date: 11/29/2020 Refer.MD: Galen Turcios Exam Time: [...] A1C 5.8(H) <5.7 % of total Hgb [facility] 08/04/2020 1:03 PM CDT 08/04/2020 1:04 PM CDT us Galen Turcios DO LABORATORY Final Re sult [facility] [address] [place] [address] [address] * COLONOSCOPY (01/17/2019) us Documents Scanned SCANNING Final Result from Last 3 Months or Most Recently Relevant to Health Maintenance Insurance E[employer]ENCE E[employer] Advance Directives * Full Code (Latest Code Status on File) Date Activated Date Inactivated Comments 12/08/2020 10:08 AM 12/08/2020 3:10 PM Care Teams Copy Manager Relationship Specialty Start Date End Date Galen Turcios DO [address] [place] [address] PCP - General FAMILY PRACTICE 06/06/18 Giorgio Fernandes MD [address] [place] [address] Kendy Merchandise Supervisor CARDIOVASCULAR DISEASE 07/05/18
--- OUTSIDE RECORDS SUMMARY | 2024-05-19 11:29 | XMS_ITS | Clinical Summary ---
Author Organization [facility] [address] Address [address] [place] [address] Care Team Providers Care Atlassian Administrator Name Role Phone Cristi Toledo MD Primary Care Provider + [phone] Allergies No known active allergies Medications aspirin [...] syncope 05/16/2022 Coronary artery disease invo lving [place] coronary artery of [place] heart without angina pectoris 02/07/2022 Hypertension associated [...] 8 PM CDT Coronary artery disease involving [place] coronary artery of [place] heart without angina pectoris Mixed diabetic hyperlipidemia [...] Most Recently Relevant to Health Maintenance Insurance [facility] Care Teams Atlassian Administrator Relationship Specialty Start Date End Date Cristi Toledo MD PCP - General Family Medicine 09/27/21
--- OUTSIDE RECORDS SUMMARY | 2024-05-19 11:29 | XMS_ITS | Referral Summary ---
Author Organization [facility] [address] Address [address] [place] [address] Care Team Providers Care Aircraft Parts Assembler Name Role Phone Cristi Toledo MD Primary Care Provider + [phone] Allergies No known active allergies Medications aspirin [...] syncope 05/16/2022 Coronary artery disease invo lving [place] coronary artery of [place] heart without angina pectoris 02/07/2022 Hypertension associated [...] 8 PM CDT Coronary artery disease involving [place] coronary artery of [place] heart without angina pectoris Mixed diabetic hyperlipidemia [...] Most Recently Relevant to Health Maintenance Insurance [facility] Care Teams Aircraft Parts Assembler Relationship Specialty Start Date End Date Cristi Toledo MD PCP - General Family Medicine 09/27/21
[2024-05-19 11:37] LABS: Creatinine Urine 184.7 mg/dL; Total Protein Urine Random 10 mg/dL; Ur Ttl Prot Creatinine Ratio 0.05 mg/mg (0-0.20)
[2024-05-19 11:41] LABS: Parathyroid Intact 23.5 pg/mL (14.5-75.2)
== END 2024-05-19 10:37 | disposition home or self-care (01) ==
PROVIDERS: Nurse Practitioner Family; PCP Family Medicine; Visit Provider Internal Medicine Nephrology
DX: D64.9 Anemia, unspecified (principal); E11.22 Type 2 diabetes mellitus with diabetic chronic kidney disease; I12.9 Hypertensive chronic kidney disease with stage 1 through stage 4 chronic kidney disease, or unspecified chronic kidney disease; N18.31 Chronic kidney disease, stage 3a; N25.81 Secondary hyperparathyroidism of renal origin; E55.9 Vitamin D deficiency, unspecified
CPT/HCPCS: 36415; 80069; 82306; 82570; 83970; 84156; 85027

== ENCOUNTER 2024-05-20 09:43 | Outpatient (CLI) | payer OTHER, SELFPAY ==
--- OUTSIDE RECORDS SUMMARY | 2024-05-20 10:37 | XMS_ITS | Clinical Summary ---
Author Organization [facility] Address [address] [place] [place] [address] Phone Care Team Providers Care Heavy Truck Driver Name Role Phone Unavailable Primary Care Provider [...] 1999 DIABETES HBA1C Q 6 MONTHS 02/04/2021 08/04/2020 INFLUENZA VACCINE (#1) 2023 RSV VACCINE (60+ or ) (1 - 1-dose 75+ series) 2024 PNEUMOCOCCAL VACCINE 65+ YEARS Completed 10/08/2018 , 09/22/2016 Insurance [facility]
--- OUTSIDE RECORDS SUMMARY | 2024-05-20 10:37 | XMS_ITS | Clinical Summary ---
Author Organization [facility] [address] Address [address] [place] [address] Care Team Providers Care Shirt Maker Name Role Phone Cristi Toledo MD Primary Care Provider + [phone] Allergies No known active allergies Medications aspirin [...] syncope 05/16/2022 Coronary artery disease invo lving [place] coronary artery of [place] heart without angina pectoris 02/07/2022 Hypertension associated [...] 8 PM CDT Coronary artery disease involving [place] coronary artery of [place] heart without angina pectoris Mixed diabetic hyperlipidemia [...] Recently Relevant to Health Maintenance Insurance [facility] Care Teams Shirt Maker Relationship Specialty Start Date End Date Cristi Toledo MD PCP - General Family Medicine 09/27/21
--- OUTSIDE RECORDS SUMMARY | 2024-05-20 10:37 | XMS_ITS | Clinical Summary ---
Author Organization [facility] Address [address] [place] [address] Care Team Providers Care Streetsweeper Operator Name Role Phone MorisjulianaGalen nguyen Ashvin BEAVER Primary Care Provider + Giorgio Fernandes MD Unavailable [phone] Allergies No known active allergies Medications Blood Glucose Monitoring Suppl (BLOOD GLUCOSE MONITOR SYSTEM) w/Device KitIndications:T ype 2 diabetes mellitus without complication, without long-term current use of insulin ([facility]) 1 Units by Does not apply route [...] complication, without long-term current use of insulin ([facility]) USE TO TEST FOUR TIMES DAILY NEEDED [...] complication, without long-term current use of insulin ([facility]) TAKE 1 TABLET (500 MG TOTAL) BY MOUTH DAILY WITH BREAKFAST. PATIENT MUST BE SEEN FOR FURTHER REFILLS 14 tablet 2 Active isosorbide mononitrate ER (IMDUR) 30 MG 24 hr tablet Take 1 tablet (30 mg total) by mouth daily. CALL FOR AN APPOINTMENT 15 tablet 3 Active losartan (COZAAR) 25 MG tabletIndication s:S/P PTCA (percutaneous transluminal coronary angioplasty),Cor onary artery disease involving [place] coronary artery of [place] heart without angina pectoris,Type 2 diabetes mellitus with stage 2 chronic kidney disease, without long-term current use of insulin ([facility]) TAKE 1 TABLET (25 MG TOTAL) BY MOUTH DAILY. CALL FOR AN APPOINTMENT 30 tablet 4 Active Glucose Blood (BLOOD GLUCOSE TEST STRIPS 333) StripIndications :Type 2 diabetes mellitus without complication, without long-term current use of insulin ([facility]) 1 strip by In Vitro route 4 (four) times daily before meals and nightly. TEST BLOOD SUGAR BEFORE MEALS AND AT BEDTIME PATIENT MUST BE SEEN FOR FURTHER REFILLS 100 strip 3 4 Active Active Problems Problem Noted Date Diagnosed Date Other fatigue 11/22/2020 Precordial pain 11/22/2020 Hypertension associated with type 2 diabetes mellitus ([facility]) 08/03/2020 Hyperlipidemia associated wi th type 2 diabetes mellitus ([facility]) 08/03/2020 Overweight 07/19/2018 On statin therapy 07/19/2018 Antiplatelet or antithrombotic long-term use 03/2019 Vertigo 07/19/2018 Vasovagal episode 07/19/2018 Family history of coronary arteriosclerosis 07/08 Type 2 diabetes mellitus wit h chronic kidney disease, without long-term current use of insulin ([facility]) 07/03/2018 Vitamin D deficiency 07/03/2018 Changing skin lesion 09/22/2016 Dyspnea, unspecified type 09/22/2016 Hyperlipidemia, mixed 11/18/2013 Hearing loss 11/13/2013 Polyarthralgia 11/13/2013 Resolved Problems Problem Noted Date Diagnosed Date Resolved Date Stage 3a chronic kidney dise ase ([facility]) 08/05/2020 11/22/2020 Immunizations Name Administration Dates Next [...] 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 Not on file Not [...] 1950 Kidney Health Evaluation 1950 PHQ-2 (Physician [place]) 1961 Hepatitis C 1967 Zoster Vaccines (1 [...] - 1-dose 75+ series) 2024 PHQ-2 (Physician [place]) 04/09/2024 DTaP, Tdap and Td Vaccines (1 [...] disease, without long-term current use of insulin ([facility]) Hyperlipidemia, mixed Other fatigue Dyspnea, unspecified type Dizziness CISNEROS (dyspnea on exertion) Unstable angina ([facility]) Former cigarette smoker HEMOGLOBIN, GLYCOSYLATED Routine 08/04/2020 1:03 PM CDT Type 2 diabetes mellitus without complication, without long-term current use of insulin ([facility]) COLONOSCOPY GENERIC (SCAN ORDER) Routine 01/17/2019 from Last 3 Months or Most Recently Relevant to Health Maintenance Results * LIPID PANEL (07/15/2021 12:00 PM CDT) CHOLESTEROL 149 MG/DL 07/15/2021 6:24 PM CDT [facility] Comment:DESIRABLE: <200 TRIGLYCERIDES 171 MG/DL 07/15/2021 6:24 PM CDT [facility] Comment:150-199 BORDERLINE H IGH HDL 43 >39 MG/DL 07/15/2021 6:24 PM CDT [facility] LDL (CALCULATED) 72 MG/DL 07/16/19 22 6:24 PM CDT [facility] Comment:<100 OPTIMAL VLDL CALCULATION 34 MG/DL 07/16/19 22 6:24 PM CDT [facility] Comment:REFERENCE RANGE NOT ESTABLISHED CHOL/HDL RATIO 3.5 07/15/2021 6:24 PM CDT [facility] Comment:REFERENCE RANGE NOT ESTABLISHED LDL/HDL 1.7 07/15/2021 6:24 PM CDT [facility] Comment:REFERENCE RANGE NOT ESTABLISHED NON HDL CHOLESTEROL 106 MG/DL 07/15/2021 6:24 PM CDT [facility] Comment:REFERENCE RANGE NOT ESTABLISHED 07/15/2021 12:0 0 PM CDT us Naga Moore MD,PHD LABORATORY Final Re sult [facility] [address] [place] [address], [place] [phone] * DIABETIC RETINOPATHY EXAM (NEGATIVE)(SCAN) (12/10/2020) us Documents Scanned SCANNING Final Result [facility] ONBASE * USV AAA SCREENING (11/29/2020 7:44 AM CDT) Anatomical Region Laterality Modality NA Vascular Ultraso und 11/29/2020 7:33 AM CDT Narrative 11/29/2020 11:08 AM CDT [facility] Pat.Name: JOELLE DANG Pat.ID: [id number] .Date: 11/29/2020 Refer.MD: Galen Turcios Exam Time: [...] [facility] Pat.Name: JOELLE DANG Pat.ID: [id number] .Date: 11/29/2020 Refer.MD: Galen Turcios Exam Time: [...] Signed 11/29/2020 11:08 AM Yobani Buckley M.D. Ngaa Moore MD,PHD [place] VASC Final Re sult * (ABNORMAL) HEMOGLOBIN, GLYCOSYLATED (08/04/2020 1:03 PM CDT) HGB A1C 5.8(H) <5.7 % of total Hgb [facility] 08/04/2020 1:03 PM CDT 08/04/2020 1:04 PM CDT us Galen Turcios DO LABORATORY Final Re sult [facility] [place] [facility] [address] [id number] * COLONOSCOPY (01/17/2019) us Documents Scanned SCANNING Final Result from Last 3 Months or Most Recently Relevant to Health Maintenance Insurance [employer] Advance Directives * Full Code (Latest Code Status on File) Date Activated Date Inactivated Comments 12/08/2020 10:08 AM 12/08/2020 3:10 PM Care Teams Streetsweeper Operator Relationship Specialty Start Date End Date Galen Turcios DO [address] [place] [address] PCP - General FAMILY PRACTICE 06/06/18 Giorgio Fernandes MD [address] [place] [address] Kendy Blank Driller CARDIOVASCULAR DISEASE 07/05/18
--- OUTSIDE RECORDS SUMMARY | 2024-05-20 10:37 | XMS_ITS | Referral Summary ---
Author Organization [facility] [place] [address] Address [address] [place] [address] Care Team Providers Care Orthodontic Technician Name Role Phone Cristi Toledo MD Primary Care Provider + [phone] Allergies No known active allergies Medications aspirin [...] syncope 05/16/2022 Coronary artery disease invo lving [place] coronary artery of [place] heart without angina pectoris 02/07/2022 Hypertension associated [...] 8 PM CDT Coronary artery disease involving [place] coronary artery of [place] heart without angina pectoris Mixed diabetic hyperlipidemia [...] Most Recently Relevant to Health Maintenance Insurance [facility] Care Teams Orthodontic Technician Relationship Specialty Start Date End Date Cristi Toledo MD PCP - General Family Medicine 09/27/21
== END 2024-05-20 09:44 | disposition home or self-care (01) ==
PROVIDERS: PCP Family Medicine
DX: H90.3 Sensorineural hearing loss, bilateral (principal)
CPT/HCPCS: 92557; 92567

== ENCOUNTER 2024-08-19 12:03 | Outpatient (CLI) | payer OTHER, SELFPAY ==
--- OUTSIDE RECORDS SUMMARY | 2024-08-19 12:09 | XMS_ITS | Referral Summary ---
Author Organization [facility] [address] [facility] [address] Address [address] [place] [address] Care Team Providers Care Punch Molder Name Role Phone Cristi Toledo MD Primary Care Provider [phone] Encounters Date Type Department Care Team Description 07/28/2024 9:30 AM CDT Office Visit [facility] Cardiology [address] [place] [address] Oni Craig MD H/O syncope (Primary Dx); Mixed diabetic hyperlipidemia associated with type 2 diabetes mellitus (HCC); Hypertension associated with diabetes (HCC); Coronary artery disease involving [place] coronary artery of [place] heart without angina pectoris; Obesity (BMI 30.0-34.9); Hypersomnolence; CISNEROS (dyspnea on exertion) from Last 3 Months Allergies No known active allergies Medications aspirin [...] Active Problems Problem Noted Date Diagnosed Date Obesity (BMI 30.0-34.9) 07/28/2024 Hypersomnolence 07/28/2024 CISNEROS (dyspnea on exertion) 07/28/2024 H/O syncope 05/16/2022 Coronary artery disease invo lving [place] coronary artery of [place] heart without angina pectoris 02/07/2022 Hypertension associated with diabetes 02/07/2022 Mixed diabetic hyperlipidemi a associated with type 2 diabetes mellitus 02/07/2022 S/P coronary artery stent placement 02/07/2022 Social History Tobacco Use Types Packs/Day Years Used Date Smoking Tobacco: Never Tobacco Cessation:Counseling Given: Not Answered Sex and Gender Information Value Date Recorded Sex Assigned at Not on file Legal Sex Male 1:59 PM CDT Gender Identity Not on file Sexual Orientation Not on file Last Filed Vital Signs Vital Sign Reading Time Taken Comments Blood Pressure 116/74 07/28/2024 9:32 AM CDT Pulse 68 07/28/2024 9:32 AM CDT Temperature - - Respiratory Rate 16 02/07/2022 8:25 AM CDT Oxygen Saturation 93% 07/28/2024 9:32 AM CDT Inhaled Oxygen Concentration - - Weight 95.7 kg (211 lb) 07/28/2024 9:32 AM CDT Height 177.8 cm (5' 10) 07/28/2024 9:32 AM CDT Body Mass Index 30.28 07/28/2024 9:32 AM CDT Plan of Treatment Not on file Procedures Procedure Name Priority Date/Time Associated Diagnosis Comments POCT LIPID PANEL Routine 07/28/2024 9:33 AM CDT Mixed diabetic hyperlipidemia associated with type 2 diabetes mellitus (HCC) Coronary artery disease involving [place] coronary artery of [place] heart without angina pectoris from Last 3 Months Results * POCT lipid panel (07/28/2024 9:33 AM CDT) Cholesterol, POC 124 mg/dL HDL, POC 33 mg/dL Triglycerides, POC 169 mg/dL LDL Cholesterol POC 57 mg/dL Chol/HDL Ratio, POC 1.7 Non-HDL Cholesterol, POC 91 mg/dL Cholesterol Total, POC 124 mg/dL Capillary blood 07/28/2024 9 :33 AM CDT us Oni Craig MD POINT OF CARE TEST ORDERA BLES Final Result from Last 3 Months Insurance [employer] PPO Care Teams Punch Molder Relationship Specialty Start Date End Date Cristi Toledo MD PCP - General Family Medicine 09/27/21
--- OUTSIDE RECORDS SUMMARY | 2024-08-19 12:09 | XMS_ITS | Clinical Summary ---
Author Organization [facility] Address [address] [place] [address] Care Team Providers Care Industrial Eng Name Role Phone MorisjulianaGalen nguyen Ashvin BEAVER Primary Care Provider + Giorgio Fernandes MD Unavailable [phone] Allergies No known active allergies Medications Blood Glucose Monitoring Suppl (BLOOD GLUCOSE MONITOR SYSTEM) w/Device KitIndications:T ype 2 diabetes mellitus without complication, without long-term current use of insulin ([facility]) 1 Units by Does not apply route [...] complication, without long-term current use of insulin ([facility]) USE TO TEST FOUR TIMES DAILY NEEDED [...] complication, without long-term current use of insulin ([facility]) TAKE 1 TABLET (500 MG TOTAL) BY MOUTH DAILY WITH BREAKFAST. PATIENT MUST BE SEEN FOR FURTHER REFILLS 14 tablet 2 Active isosorbide mononitrate ER (IMDUR) 30 MG 24 hr tablet Take 1 tablet (30 mg total) by mouth daily. CALL FOR AN APPOINTMENT 15 tablet 3 Active losartan (COZAAR) 25 MG tabletIndication s:S/P PTCA (percutaneous transluminal coronary angioplasty),Cor onary artery disease involving [place] coronary artery of [place] heart without angina pectoris,Type 2 diabetes mellitus with stage 2 chronic kidney disease, without long-term current use of insulin ([facility]) TAKE 1 TABLET (25 MG TOTAL) BY MOUTH DAILY. CALL FOR AN APPOINTMENT 30 tablet 4 Active Glucose Blood (BLOOD GLUCOSE TEST STRIPS 333) StripIndications :Type 2 diabetes mellitus without complication, without long-term current use of insulin ([facility]) 1 strip by In Vitro route 4 (four) times daily before meals and nightly. TEST BLOOD SUGAR BEFORE MEALS AND AT BEDTIME PATIENT MUST BE SEEN FOR FURTHER REFILLS 100 strip 3 4 Active Active Problems Problem Noted Date Diagnosed Date Other fatigue 11/22/2020 Precordial pain 11/22/2020 Hypertension associated with type 2 diabetes mellitus ([facility]) 08/03/2020 Hyperlipidemia associated wi th type 2 diabetes mellitus ([facility]) 08/03/2020 Overweight 07/19/2018 On statin therapy 07/19/2018 Antiplatelet or antithrombotic long-term use 03/2019 Vertigo 07/19/2018 Vasovagal episode 07/19/2018 Family history of coronary arteriosclerosis 07/08 Type 2 diabetes mellitus wit h chronic kidney disease, without long-term current use of insulin ([facility]) 07/03/2018 Vitamin D deficiency 07/03/2018 Changing skin lesion 09/22/2016 Dyspnea, unspecified type 09/22/2016 Hyperlipidemia, mixed 11/18/2013 Hearing loss 11/13/2013 Polyarthralgia 11/13/2013 Resolved Problems Problem Noted Date Diagnosed Date Resolved Date Stage 3a chronic kidney disease 08/05/2020 11/22/2020 Immunizations Immunization Administration Dates Next Due Influenza Adult (Generic) [...] Smoking Tobacco: Former Cigarettes 1.5 15 1 [id number] Smokeless Tobacco: Never Alcohol Use Standard Drinks/Week [...] 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 Not on file Not [...] 10:03 AM CDT Height 177.8 cm (5' 10) 09/22/2021 10:03 AM CDT Body Mass Index 28.98 09/22/2021 10:03 AM CDT Plan of Treatment Health Maintenance Due Date Last Done Comments Kidney Health Evaluation 1950 Hepatitis C 1967 Zoster Vaccines (1 of 2) 1999 Annual Medicare Wellness Visit 2014 Hemoglobin A1C 02/03/2021 08/04/2020, 11/2020, 05/02/2019, Additional history exists Lipid Panel 07/15/2022 07/15/2021, 11/08, 04/16/2020, Additional history exists Diabetes: Retinopathy Eye Exam 12/10/2022 12/10/2020, 06/07/2018 COVID-19 Vaccine ( - 2023-25 season) 2023 RSV Immunization or 60+ Years (1 - 1-dose 75+ series) 2024 PHQ-2 (Physician [place]) 04/09/2024 DTaP, Tdap and Td Vaccines (1 - Tdap) 05/02/2028 Postponed from 1968 (Per Provider Recommendation) Colorectal Cancer Screening Colonoscopy (10 Years) 01/17/2029 01/17/2019, 01/17/2019 Pneumococcal Vaccine: 50+ Years Completed 10/08/2018, 09/22/2016 AAA SCREENING Completed [...] disease, without long-term current use of insulin Hyperlipidemia, mixed Other fatigue Dyspnea, unspecified type Dizziness CISNEROS (dyspnea on exertion) Unstable angina Former cigarette smoker HEMOGLOBIN, GLYCOSYLATED Routine 08/04/2020 1:03 PM CDT Type 2 diabetes mellitus without complication, without long-term current use of insulin COLONOSCOPY GENERIC (SCAN ORDER) Routine 01/17/2019 from Last 3 Months or Most Recently Relevant to Health Maintenance Results * LIPID PANEL (07/15/2021 12:00 PM CDT) CHOLESTEROL 149 MG/DL 07/15/2021 6:[address] [facility] Comment:DESIRABLE: <200 TRIGLYCERIDES 171 MG/DL 07/15/2021 6:[address] [facility] Comment:150-199 BORDERLINE H IGH HDL 43 >39 MG/DL 07/15/2021 6:[address] [facility] LDL (CALCULATED) 72 MG/DL 07/16/19 6:[address] [facility] Comment:<100 OPTIMAL VLDL CALCULATION 34 MG/DL 07/16/19 6:[address] [facility] Comment:REFERENCE RANGE NOT ESTABLISHED CHOL/HDL RATIO 3.5 07/15/2021 6:[address] [facility] Comment:REFERENCE RANGE NOT ESTABLISHED LDL/HDL 1.7 07/15/2021 6:[address] [facility] Comment:REFERENCE RANGE NOT ESTABLISHED NON HDL CHOLESTEROL 106 MG/DL 07/15/2021 6:[address] [facility] Comment:REFERENCE RANGE NOT ESTABLISHED 07/15/2021 12:0 0 PM CDT Naga Moore MD,PHD LABORATORY Final Re sult [facility] [address] [place] [address], [id number] * DIABETIC RETINOPATHY EXAM (NEGATIVE)(SCAN) (12/10/2020) us Documents Scanned SCANNING Final Result Performing Organization Address City/[facility]/ZIP Co de Phone Number [facility] ONBASE * USV AAA SCREENING (11/29/2020 7:44 AM CDT) Anatomical Region Laterality Modality NA Vascular Ultraso und 11/29/2020 7:33 AM CDT Narrative 11/29/2020 11:08 AM CDT [facility] Pat.Name: JUANCHO DANG Pat.ID: [id number] St.Date: 11/29/2020 Refer.MD: Galen Turcios Exam Time: 7:33:00 [...] [facility] Pat.Name: JUANCHO DANG Pat.ID: [id number] .Date: 11/29/2020 Refer.MD: Galen Turcios Exam Time: [...] A1C 5.8(H) <5.7 % of total Hgb [facility] 08/04/2020 1:03 PM CDT 08/04/2020 1:04 PM CDT Galen Turcios DO LABORATORY Final Re sult [facility] [address] [place] [address] * COLONOSCOPY (01/17/2019) Documents Scanned SCANNING Final Result from Last 3 Months or Most Recently Relevant to Health Maintenance Insurance [employer] Advance Directives * Full Code (Latest Code Status on File) Date Activated Date Inactivated Comments 12/08/2020 10:08 AM 12/08/2020 3:10 PM Care Teams Industrial Eng Relationship Specialty [place] [address] [place] [address] PCP - General FAMILY PRACTICE 06/06/18 Giorgio Fernandes MD [address] [place] [address] Kendy Splicing Supervisor CARDIOVASCULAR DISEASE 07/05/18
--- OUTSIDE RECORDS SUMMARY | 2024-08-19 12:09 | XMS_ITS | Clinical Summary ---
Author Organization [facility] [address] Address [address] [place] [address] Care Team Providers Care Piece Hand Name Role Phone Cristi Toledo MD Primary Care Provider + [phone] Allergies No known active allergies Medications aspirin [...] syncope 05/16/2022 Coronary artery disease invo lving [place] coronary artery of [place] heart without angina pectoris 02/07/2022 Hypertension associated with diabetes 02/07/2022 Mixed diabetic hyperlipidemi a associated with type 2 diabetes mellitus 02/07/2022 S/P coronary artery stent placement 02/07/2022 Encounters Date Type Department Care Team Description 07/28/2024 9:30 AM CDT Office Visit [facility] Cardiology [address] [place] [address] Oni Craig MD H/O syncope (Primary Dx); Mixed diabetic hyperlipidemia associated with type 2 diabetes mellitus (HCC); Hypertension associated with diabetes (HCC); Coronary artery disease involving [place] coronary artery of [place] heart without angina pectoris; Obesity (BMI 30.0-34.9); Hypersomnolence; CISNEROS (dyspnea on exertion) from Last 3 Months Surgical History Surgery Date Site/Laterality Comments CARDIAC [...] 07/28/2024 9:32 AM CDT Plan of Treatment Health Maintenance [...] 1999 Well Visit 65+ 2014 Covid-19 Vaccine ( - season) 2023, 04/11/2021 Influenza Vaccine (Season Ended) 2024 Lipid Panel 07/28/2025 07/28/2024, 01/07, 07/15/2021 Pneumococcal vaccine 65+ Completed 10/08/2018, 09/07 Procedures Procedure Name Priority Date/Time Associated Diagnosis Comments POCT LIPID PANEL Routine 07/28/2024 9:33 AM CDT Mixed diabetic hyperlipidemia associated with type 2 diabetes mellitus (HCC) Coronary artery disease involving [place] coronary artery of [place] heart without angina pectoris from Last 3 Months Results * POCT lipid panel (07/28/2024 9:33 AM CDT) Cholesterol, POC 124 mg/dL HDL, POC 33 mg/dL Triglycerides, POC 169 mg/dL LDL Cholesterol POC 57 mg/dL Chol/HDL Ratio, POC 1.7 Non-HDL Cholesterol, POC 91 mg/dL Cholesterol Total, POC 124 mg/dL Capillary blood 07/28/2024 9 :33 AM CDT Oni Craig MD POINT OF CARE TEST ORDERA BLES Final Result from Last 3 Months Insurance [employer] PPO Care Teams Piece Hand Relationship Specialty Start Date End Date Cristi Toledo MD PCP - General Family Medicine 09/27/21
--- OUTSIDE RECORDS SUMMARY | 2024-08-19 12:09 | XMS_ITS | Clinical Summary ---
Author Organization [facility] Address [address] [place] [address] Phone Care Team Providers Care Municipal Engineer Name Role Phone Unavailable Primary Care Provider [...] 12:11 PM CDT Height 177.8 cm (5' 10) 02/03/2022 12:11 PM CDT Body Mass Index [...] 2) 1999 DIABETES HBA1C Q 6 MONTHS 02/03/2021 08/04/2020 INFLUENZA VACCINE (#1) 2023 RSV VACCINE (60+ or ) (1 - 1-dose 75+ series) 2024 PNEUMOCOCCAL VACCINE 50+ YEARS Completed 10/08/2018 , 09/22/2016 Insurance [facility]
--- NOTE | 2024-09-15 16:38 | WPDSLEEPSTUD ---
Sleep Study Date of Study: 08/19/24 Ordering Provider: Cristi Toledo MD Interpreting Physician: Iza Shah DO Sleep Study Type: Polysomnogram Height: 1.78 m Weight: 92.986 kg Body Mass Index: 29.4 Neck Circumference (inches): 18 [place]: 2 Reason for Sleep Study Nocturia, loud snoring, daytime hypersomnia Sleep History The patient is a 74-year-old male who had a sleep study ordered by his primary care physician for evaluation of sleep apnea. The patient occasionally awakens from sleep short of breath. He occasionally awakens at night with heartburn, belching, or cough. He frequently snores, and it is frequently loud enough that others complain. He denies having trouble sleeping when he has a cold. He denies waking up gasping for air throughout the night. He rarely has breathing problems at night observed by himself or others. He rarely sweats excessively at night. He denies having heart palpitations or irregular heartbeats during the night. He denies falling asleep during the day and while driving. He denies sleep paralysis and cataplexy. He denies having trouble at school or work due to sleepiness. He occasionally experiences vivid dreamlike scenes upon awakening or falling asleep. He denies feeling afraid of going to sleep. He denies having nightmares. He constantly remembers his dreams. He occasionally has thoughts racing through his mind. He denies feeling sad or depressed. He occasionally has anxiety. He occasionally has muscular tension. He denies noticing parts of his body jerk. He denies kicking during the night. He denies having crawling and aching feelings in his legs but occasionally has leg pain during the night. He denies grinding his teeth during sleep and denies awakening with morning jaw pain. He is constantly bothered by pain during the day and frequently awakened by pain during the night. He constantly wakes up feeling stiff in the morning. He constantly wakes up with sore or achy muscles. He constantly wakes up with pain in the neck, spine, or other joints. He goes to bed at 9 p.m. on weekdays and at 8 p.m. on weekends. He is unsure how long it takes him to fall asleep. He wakes up 3 to 4 times throughout the night to urinate and is able to fall back asleep within 10 to 15 minutes. He wakes up at 7 a.m. on weekdays and at 3 a.m. on weekends. He typically gets 5 hours of sleep per night. He will stay in bed for 30 to 60 minutes after waking up in the morning. He currently lives with his . He does work a rotating shift. He denies consuming any caffeinated beverages within 2 hours of bedtime. He denies engaging in physical exercise before bedtime. He denies reading and watching television before falling asleep. He will take naps in the afternoon or the evening, and they are refreshing. He consumes 2 caffeinated beverages per day. He denies tobacco, alcohol, and recreational drug use. [facility] Past Medical History Medical History Chronic kidney disease, stage 2 (mild) RBC microcytosis CKD stage 3 due to type 2 diabetes mellitus BMI 29.0-29.9,adult Tremor of right hand BMI 28.0-28.9,adult Vitamin D deficiency Microalbuminuric diabetic nephropathy Acute dermatitis Screening for prostate cancer Hearing loss Coronary arteriosclerosis Hyperlipidemia Diabetes Surgical History Surgical History Hx of cholecystectomy Family History Family History Father Hypertension Tobacco abuse Mother Heart disease Heart failure Sibling Poisoning by chemical Tobacco abuse Diabetes mellitus Amputation of leg Cerebrovascular accident Cancer Acute myocardial infarction Sibling Parkinson's disease Social History Social History Smoking status: Former smoker Second hand tobacco smoke exposure: Yes Alcohol intake: current Substance use: never Substance use type: does not use Do You Feel Safe in your Home?: Yes Lack of Transportation: No Lack of Food: Never True Current Housing: I Have Housing Concerned About Future Housing: No Difficulty Paying Gas/Electric Bills: No Difficulty Paying for Meds: No Currently Unemployed: No Education: High School Diploma/GED Difficulty w/ Childcare or Family Care: No Living arrangements: with family Occupation/Education: occupation Additional occupation/education comments: 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 Gender identity (if verbalized by the patient): Male Sexual Orientation (if Verbalized by the Patient): Straight or Heterosexual Medications Home Medications ?Medication ?Instructions ?Recorded ?Confirmed ?Type cyclobenzaprine 10 mg tablet 10 mg PO BID PRN muscle spasm #20 03/01/22 08/28/24 Rx tabs aspirin 81 mg tablet,delayed 81 mg PO .QD #90 tabs 05/29/22 08/28/24 Rx release (Adult Low Dose Aspirin) multivitamin 1 tablet PO DAILY 03/15/23 08/28/24 History blood-glucose meter (FreeStyle #1 ea 09/19/23 08/28/24 Rx Lite Meter kit) cholecalciferol (vitamin D3) 125 125 mcg PO DAILY 06/23/24 08/28/24 History mcg (5,000 unit) capsule metformin 500 mg tablet,extended 500 mg PO .qd #90 tabs 07/03/24 08/28/24 Rx release 24 hr metoprolol succinate 25 mg 25 mg PO .QD #90 tabs 07/03/24 08/28/24 Rx tablet,extended release 24 hr triamcinolone acetonide 0.5 % See Rx Instructions .Route 07/03/24 08/28/24 Rx topical cream .COMPLEX #75 grams albuterol sulfate 90 mcg/actuation See Rx Instructions .Route 07/29/24 08/28/24 Rx aerosol inhaler .COMPLEX #8.5 ea lancets 28 gauge (FreeStyle #100 ea 08/20/24 08/28/24 Rx Lancets) blood sugar diagnostic (FreeStyle #100 strips 08/24/24 08/28/24 Rx Lite Strips) finasteride 5 mg tablet 5 mg PO DAILY #30 tabs 08/28/24 08/28/24 Rx losartan 25 mg tablet See Rx Instructions .Route 09/03/24 Rx .COMPLEX #90 tabs omeprazole 20 mg capsule,delayed See Rx Instructions .Route 09/08/24 Rx release .COMPLEX #90 caps rosuvastatin 40 mg tablet (Crestor) 40 mg PO DAILY #90 tabs 09/08/24 Rx Sleep Procedure A full night polysomnogram using the [employer] multi-channel system recorded the standard physiologic parameters including EEG, EOG, submentalis EMG, anterior tibialis EMG, EKG, body position, nasal and oral airflow using nasal pressure sensor and thermistor.? Respiratory parameters of chest and abdominal movements were recorded with Respiratory Inductance Plethysmography belts. Oxygen saturation was recorded by pulse oximetry. Video monitoring was also performed. Sleep stages, periodic limb movements, and EEG arousals were scored in 30 second epochs according to the criteria of the AASM Scoring Manual. The Apnea-Hypopnea Index was calculated using [facility] guidelines for definition of hypopnea with 4% O2 desaturations while scoring respiratory events. Sleep Architecture The total recording time was 497.6 minutes.? The total sleep time was 349.5 minutes. Sleep latency was 13.5 minutes. REM latency was 106.0 minutes. Sleep efficiency was 70.2%. The patient had 37 awakenings for an awakening index of 6.4. Wake after sleep onset time was 134.5 minutes. The patient spent 42.5 minutes, 12.2% of total sleep time in Stage N1. The patient spent 226.5 minutes, 64.8% in Stage N2. The patient spent 0.0 minutes, 0.0% in Stage N3. The patient spent 80.5 minutes, 23.0% in Stage REM sleep. Respiratory Analysis The patient had 47 hypopneas for an overall Apnea Hypopnea Index of 7.9. The REM Apnea Hypopnea Index was 17.1. The NREM Apnea Hypopnea Index was 6.2. The patient had a Central Apnea Hypopnea Index of 0. There was no evidence of [place]-Mull[place] Respirations. Arousals There were 108 total arousals for an arousal index of 18.5. There were 69 spontaneous arousals for an index of 11.8. There were 21 arousals due to respiratory events for an index of 3.6. There were 3 arousals due to periodic limb movements for an index of 0.5.? There were 15 arousals due to isolated limb movements for an index of 2.6. Periodic Limb Movements The patient had 60 isolated limb movements with an index of 10.3. The patient had 53 periodic limb movements with an index of 9.1. Patient had a total of 113 limb movements with a total limb movement index of 19.4. Oximetry Data The patient had an average oxygen saturation of 91.2% in sleep with a minimum oxygen saturation of 85.0% and a maximum oxygen saturation of 96.0%. The patient had 50 oxygen desaturations that were 4% or greater resulting in an Oxygen Desaturation Index of 8.6.? The patient spent 12.4 minutes, 2.6% of total sleep time with an oxygen saturation below 88%. Snoring Profile Mild snoring was present intermittently throughout the study. Cardiac Profile The EKG showed normal sinus rhythm with rare PVCs. The patient had an average pulse rate of 72.9 bpm with a minimum pulse of rate of 55.0 bpm and a maximum pulse rate of 98.0 bpm.? EEG Profile No signs of seizure activity seen. Assessment and Plan Assessment and Plan (1) MALOU (obstructive sleep apnea): Code(s): G47.33 - Obstructive sleep apnea (adult) (pediatric) Status: Acute Assessment and Plan: The patient had an overall AHI of 7.9 with desaturation down to 85%. This is consistent with mild sleep apnea. Due to the patient's diabetes, he qualifies for treatment. I recommend that the patient have a CPAP Titration study with the use of a hypnotic to ensure we obtain enough sleep data and find an optimal pressure setting. Data The data obtained during this sleep study is adequate for interpretation. Certification This sleep study has been reviewed by a board certified sleep medicine physician.
[2024-09-15 16:40] VITALS: BMI 29.4
== END 2024-08-20 06:20 | disposition home or self-care (01) ==
LOC: ANHCSM 12:07
PROVIDERS: Visit Provider Family Medicine
DX: G47.10 Hypersomnia, unspecified (principal); G47.33 Obstructive sleep apnea (adult) (pediatric)
CPT/HCPCS: 95810

== ENCOUNTER 2024-11-06 11:59 | Outpatient (CLI) | payer OTHER, SELFPAY ==
--- OUTSIDE RECORDS SUMMARY | 2024-11-06 12:04 | XMS_ITS | Referral Summary ---
Author Organization [facility] [address] [facility] [address] [place] [address] Care Team Providers Care [employer] Consultant Name Role Phone Cristi Toledo MD Primary Care Provider [phone] Encounters Date Type Department Care Team Description 08/26/2024 Results Follow-Up [facility] Medical [facility] Cardiology [address] [place] [address] Oni Henry MD Transthoracic Echo (TTE) Complete W Doppler/CF 08/25/2024 10:15 AM CDT Ancillary Procedure [facility] Medical [facility] Cardiology [address] [place] [address] Coronary artery disease involving [place] coronary artery of [place] heart without angina pectoris; CISNEROS (dyspnea on exertion) from Last 3 [...] syncope 05/16/2022 Coronary artery disease invo lving [place] coronary artery of [place] heart without angina pectoris 02/07/2022 Hypertension associated [...] Procedure Name Priority Date/Time Associated Diagnosis Comments TRANSTHORACIC ECHO (TTE) COMPLETE W DOPPLER/CF WO CONTRAST Routine 08/25/2024 10:17 AM CDT Coronary artery disease involving [place] coronary artery of [place] heart without angina pectoris CISNEROS (dyspnea on exertion) POCT LIPID PANEL Routine 07/28/2024 9:33 AM CDT Mixed diabetic hyperlipidemia associated with type 2 diabetes mellitus (HCC) Coronary artery disease involving [place] coronary artery of [place] heart without angina pectoris from Last 3 Months or Most Recently Relevant to Health Maintenance Results * TRANSTHORACIC ECHO (TTE) COMPLETE W DOPPLER/CF WO CONTRAST (08/25/2024 10:17 AM CDT) EF Mod BP 64 % CONS SCIMAGE Anatomical Region Laterality Modality Ultrasound 08/25/2024 9:50 AM CDT Narrative 08/25/2024 10:58 AM CDT [facility] Medical Group Cardiology [address] [facility] [address] [address] [address] [facility] [address], [place] [address] P:[phone] P:[phone] Echocardiographic Report Patient Name: JUANCHO DANG D : 1950 Study Date: 08/25/2024 9:50:13 AM Gender: M Tech: Location: [facility] Provider: ONI HENRY Height(Cm): 178 BSA: 2.18 Weight(Kg): 95.7 Heart Rate: 73 BP: 116 / 74 Quality: Good Order Provider: ONI HENRY PROCEDURES: Echocardiographic Report: Transthoracic echocardiogram with complete 2D, M-Mode, and color Doppler examination. With Strain Analysis. INDICATIONS: I25.10 Atherosclerotic heart disease of [place] coronary artery without angina pectoris and R06.09 Other forms of dyspnea. MEASUREMENTS: 2D/MM Value Range Doppler Value Range EF Mod BP 64 % [ 52 - 72 ] TONEY Vmax 1.80 cm2 [ 2.00 - 4.00 ] EF Teich MM 52 % [ 52 - 72 ] AV Mean PG 7 mmHg LVIDd 2D 5.25 cm [ 4.20 - 5.80 ] AV Peak Michael 1.88 m/s [ 1.00 - 1.70 ] LVIDd MM 6.26 cm [ 4.20 - 5.80 ] AV Peak PG 14 mmHg LVIDs 2D 3.05 cm [ 2.50 - 4.00 ] AV VTI 40.31 cm LVIDs MM 4.56 cm [ 2.50 - 4.00 ] LVOT Diam 1.96 cm [ 1.70 - 2.10 ] LVPWd 2D 1.09 cm [ 0.60 - 1.00 ] LVOT Peak Michael 1.04 m/s [ 0.70 - 1.10 ] LVPWd MM 1.21 cm [ 0.60 - 1.00 ] LVOT VTI 23.50 cm IVSd 2D 1.03 cm [ 0.60 - 1.00 ] MV E Peak Michael 1.06 m/s [ 0.60 - 1.30 ] IVSd MM 1.18 cm [ 0.60 - 1.00 ] MV A Peak Michael 1.08 m/s [ 1.00 - 1.20 ] LA Dimension MM 3.26 cm [ 3.00 - 4.00 ] MV Decel Time 217 msec [ 104 - 258 ] AoR Diam MM 3.78 cm [ 3.10 - 3.70 ] PV Peak Michael 1.44 m/s [ 0.40 - 0.80 ] LA Volume Index 13 cc/m2 [ 16 - 34 ] TR Peak Michael 2.12 m/s [ 1.00 - 2.80 ] ACS MM 1.76 cm [ 1.50 - 2.60 ] TR Peak PG 18 mmHg RVSP 26.00 mmHg [ 10.00 - 36.00 ] Lateral E` 0.06 m/s [ 0.10 - 0.15 ] E` 0.05 m/s E/E` 18 2D/MM Value Range Doppler Value Range - FINDINGS: Interpretation Site: Exam was interpreted at [facility]. Left Ventricle: Normal left ventricular systolic function. No focal wall motion abnormalities. Normal left ventricular size. Mild concentric left ventricular hypertrophy. There is pseudonormal diastolic dysfunction Grade II. Ejection fraction is measured at 64 %. Global Longitudinal Strain is -17 %. GLS is abnormal. Right Ventricle: Normal right ventricular size. Normal right ventricular systolic function. Left Atrium: The left atrium is normal in size. Right Atrium: The right atrium is normal in size. Atrial Septum: Normal atrial septum. Mitral Valve: Normal appearance of the mitral valve. No mitral valve regurgitation is seen. There is no hemodynamically significant mitral stenosis by Doppler. Aortic Valve: No evidence of hemodynamically significant aortic stenosis by Doppler. Aortic cusps appear mildly sclerotic. Trileaflet aortic valve. No aortic regurgitation. Tricuspid Valve: Normal appearance of the tricuspid valve. Estimated peak RVSP is 26 mmHg. Trivial regurgitation in the tricuspid valve. Pulmonic Valve: Normal appearance of the pulmonic valve. No evidence of pulmonic regurgitation. Pericardium: Normal pericardium with no significant pericardial effusion. Aorta: Sinus of Valsalva is normal. IVC: The IVC is not well visualized. Pulmonary Artery: Normal pulmonary artery size. CONCLUSIONS: Normal left ventricular systolic function. No focal wall motion abnormalities. Normal left ventricular size. Mild concentric left ventricular hypertrophy. There is pseudonormal diastolic dysfunction Grade II. Ejection fraction is measured at 64 %. Global Longitudinal Strain is -17 %. GLS is abnormal. Estimated peak RVSP is 26 mmHg. Trivial regurgitation in the tricuspid valve. Electronically Signed By: Dr. Scott Jiménez [facility] 08/25/2024 10:57:45 AM CDT Procedure Note Scott Jiménez MD - 08/25/2024 [facility] Medical Group Cardiology [address] [facility] [address], [place] [address] [address] [facility] [address] [place], [place] [address] P:[phone] P:[phone] Echocardiographic Report Patient Name: JUANCHO DANG D : 1950 Study Date: 08/25/2024 9:50:13 AM Gender: M Tech: Location: [place] Ref Provider: ONI HENRY Height(Cm): 178 BSA: 2.18 Weight(Kg): 95.7 Heart Rate: 73 BP: 116 / 74 Quality: Good Order Provider: ONI HENRY PROCEDURES: Echocardiographic Report: Transthoracic echocardiogram with complete 2D, M-Mode, and color Dopplerexamination. With Strain Analysis. INDICATIONS: I25.10 Atherosclerotic heart disease of [place] coronary artery withoutangina pectoris and R06.09 Other forms of dyspnea. MEASUREMENTS: 2D/MM Value Range Doppler ValueRange EF Mod BP 64 % [ 52 - 72 ] TONEY Vmax 1.80cm2 [ 2.00 - 4.00 ] EF Teich MM 52 % [ 52 - 72 ] AV Mean PG 7mmHg LVIDd 2D 5.25 cm [ 4.20 - 5.80 ] AV Peak Michael 1.88m/s [ 1.00 - 1.70 ] LVIDd MM 6.26 cm [ 4.20 - 5.80 ] AV Peak PG 14mmHg LVIDs 2D 3.05 cm [ 2.50 - 4.00 ] AV VTI 40.31cm LVIDs MM 4.56 cm [ 2.50 - 4.00 ] LVOT Diam 1.96 cm[ 1.70 - 2.10 ] LVPWd 2D 1.09 cm [ 0.60 - 1.00 ] LVOT Peak Michael 1.04m/s [ 0.70 - 1.10 ] LVPWd MM 1.21 cm [ 0.60 - 1.00 ] LVOT VTI 23.50cm IVSd 2D 1.03 cm [ 0.60 - 1.00 ] MV E Peak Michael 1.06m/s [ 0.60 - 1.30 ] IVSd MM 1.18 cm [ 0.60 - 1.00 ] MV A Peak Michael 1.08m/s [ 1.00 - 1.20 ] LA Dimension MM 3.26 cm [ 3.00 - 4.00 ] MV Decel Time 217msec [ 104 - 258 ] AoR Diam MM 3.78 cm [ 3.10 - 3.70 ] PV Peak Michael 1.44m/s [ 0.40 - 0.80 ] LA Volume Index 13 cc/m2 [ 16 - 34 ] TR Peak Michael 2.12m/s [ 1.00 - 2.80 ] ACS MM 1.76 cm [ 1.50 - 2.60 ] TR Peak PG 18mmHg RVSP 26.00 mmHg [ 10.00 - 36.00 ] Lateral E` 0.06 m/s [ 0.10 - 0.15 ] E` 0.05 m/s E/E` 18 2D/MM Value Range Doppler ValueRange - FINDINGS: Interpretation Site: Exam was interpreted at [facility]. Left Ventricle: Normal left ventricular systolic function. No focal wall motionabnormalities. Normal left ventricular size. Mild concentric left ventricular hypertrophy. Thereis pseudonormal diastolic dysfunction Grade II. Ejection fraction is measuredat 64 %. Global Longitudinal Strain is -17 %. GLS is abnormal. Right Ventricle: Normal right ventricular size. Normal right ventricular systolicfunction. Left Atrium: The left atrium is normal in size. Right Atrium: The right atrium is normal in size. Atrial Septum: Normal atrial septum. Mitral Valve: Normal appearance of the mitral valve. No mitral valve regurgitation isseen. There is no hemodynamically significant mitral stenosis by Doppler. Aortic Valve: No evidence of hemodynamically significant aortic stenosis by Doppler.Aortic cusps appear mildly sclerotic. Trileaflet aortic valve. No aorticregurgitation. Tricuspid Valve: Normal appearance of the tricuspid valve. Estimated peak RVSP is 26 mmHg.Trivial regurgitation in the tricuspid valve. Pulmonic Valve: Normal appearance of the pulmonic valve. No evidence of pulmonicregurgitation. Pericardium: Normal pericardium with no significant pericardial effusion. Aorta: Sinus of Valsalva is normal. IVC: The IVC is not well visualized. Pulmonary Artery: Normal pulmonary artery size. CONCLUSIONS: Normal left ventricular systolic function. No focal wall motionabnormalities. Normal left ventricular size. Mild concentric left ventricular hypertrophy. Thereis pseudonormal diastolic dysfunction Grade II. Ejection fraction is measuredat 64 %. Global Longitudinal Strain is -17 %. GLS is abnormal. Estimated peak RVSP is 26 mmHg. Trivial regurgitation in the tricuspidvalve. Electronically Signed By: Dr. Scott Jiménez [facility] 08/25/2024 10:57:45 AM CDT Oni Henry MD CV ECHO PROCEDURES Final Result * POCT lipid panel (07/28/2024 9:33 AM CDT) Cholesterol, POC 124 mg/dL HDL, POC 33 mg/dL Triglycerides, POC 169 mg/dL LDL Cholesterol POC 57 mg/dL Chol/HDL Ratio, POC 1.7 Non-HDL Cholesterol, POC 91 mg/dL Cholesterol Total, POC 124 mg/dL Capillary blood 07/28/2024 9 :33 AM CDT Oni Henry MD POINT OF CARE TEST ORDERA BLES Final Result from Last 3 Months or Most Recently Relevant to Health Maintenance Insurance [employer] ADVANTAGE CHOICE PPO Care Teams [employer] Consultant Relationship Specialty Start Date End Date Cristi Toledo MD PCP - General Family Medicine 09/27/21
--- OUTSIDE RECORDS SUMMARY | 2024-11-06 12:04 | XMS_ITS | Clinical Summary ---
Author Organization [facility] Address [address] [place] [address] Care Team Providers Care Bottom Turning Lathe Turner Name Role Phone MorisjulianaGalen nguyen Ashvin BEAVER Primary Care Provider + Giorgio Fernandes MD Unavailable Allergies No known active allergies Medications Blood Glucose Monitoring Suppl (BLOOD GLUCOSE MONITOR SYSTEM) w/Device KitIndications:T ype 2 diabetes mellitus without complication, without long-term current use of insulin ([facility]) 1 Units by Does not apply route [...] complication, without long-term current use of insulin ([facility]) USE TO TEST FOUR TIMES DAILY NEEDED [...] complication, without long-term current use of insulin ([facility]) TAKE 1 TABLET (500 MG TOTAL) BY MOUTH DAILY WITH BREAKFAST. PATIENT MUST BE SEEN FOR FURTHER REFILLS 14 tablet 2 Active isosorbide mononitrate ER (IMDUR) 30 MG 24 hr tablet Take 1 tablet (30 mg total) by mouth daily. CALL FOR AN APPOINTMENT 15 tablet 3 Active losartan (COZAAR) 25 MG tabletIndication s:S/P PTCA (percutaneous transluminal coronary angioplasty),Cor onary artery disease involving [place] coronary artery of [place] heart without angina pectoris,Type 2 diabetes mellitus with stage 2 chronic kidney disease, without long-term current use of insulin ([facility]) TAKE 1 TABLET (25 MG TOTAL) BY MOUTH DAILY. CALL FOR AN APPOINTMENT 30 tablet 4 Active Glucose Blood (BLOOD GLUCOSE TEST STRIPS 333) StripIndications :Type 2 diabetes mellitus without complication, without long-term current use of insulin ([facility]) 1 strip by In Vitro route 4 (four) times daily before meals and nightly. TEST BLOOD SUGAR BEFORE MEALS AND AT BEDTIME PATIENT MUST BE SEEN FOR FURTHER REFILLS 100 strip 3 4 Active Active Problems Problem Noted Date Diagnosed Date Other fatigue 11/22/2020 Precordial pain 11/22/2020 Hypertension associated with type 2 diabetes mellitus ([facility]) 08/03/2020 Hyperlipidemia associated wi th type 2 diabetes mellitus ([facility]) 08/03/2020 Overweight 07/19/2018 On statin therapy 07/19/2018 Antiplatelet or antithrombotic long-term use 03/2019 Vertigo 07/19/2018 Vasovagal episode 07/19/2018 Family history of coronary arteriosclerosis 07/08 Type 2 diabetes mellitus wit h chronic kidney disease, without long-term current use of insulin ([facility]) 07/03/2018 Vitamin D deficiency 07/03/2018 Changing skin [...] 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 Not on file Not [...] - 1-dose 75+ series) 2024 PHQ-2 (Physician [place]) 04/09/2024 DTaP, Tdap and Td Vaccines (1 [...] CHOLESTEROL 149 MG/DL 07/15/2021 6:24 PM CDT [facility] Comment:DESIRABLE: <200 TRIGLYCERIDES 171 MG/DL 07/15/2021 6:24 PM CDT [facility] Comment:150-199 BORDERLINE H IGH HDL 43 >39 MG/DL 07/15/2021 6:24 PM CDT [facility] LDL (CALCULATED) 72 MG/DL 07/16/19 6:24 PM CDT [facility] Comment:<100 OPTIMAL VLDL CALCULATION 34 MG/DL 07/16/19 6:24 PM CDT [facility] Comment:REFERENCE RANGE NOT ESTABLISHED CHOL/HDL RATIO 3.5 07/15/2021 6:24 PM CDT [facility] Comment:REFERENCE RANGE NOT ESTABLISHED LDL/HDL 1.7 07/15/2021 6:24 PM CDT [facility] Comment:REFERENCE RANGE NOT ESTABLISHED NON HDL CHOLESTEROL 106 MG/DL 07/15/2021 6:24 PM CDT [facility] Comment:REFERENCE RANGE NOT ESTABLISHED 07/15/2021 12:0 0 PM CDT Naga Moore MD,PHD LABORATORY Final Re sult [facility] [address] [place] [address], [id number] * DIABETIC RETINOPATHY EXAM (NEGATIVE)(SCAN) (12/10/2020) us Documents Scanned SCANNING Final Result Performing Organization Address City/[facility]/ZIP Co de Phone Number [facility] ONBASE * USV AAA SCREENING (11/29/2020 7:44 AM CDT) Anatomical Region Laterality Modality NA Vascular Ultraso und 11/29/2020 7:33 AM CDT Narrative 11/29/2020 11:08 AM CDT [facility] Pat.Name: JUANCHO DANG Pat.ID: [id number] St.Date: 11/29/2020 Refer.MD: Galen Turcios Exam Time: [...] DUPLEX [facility]ASC[facility] Pat.Name: JUANCHO DANG Pat.ID: [id number] .Date: 11/29/2020 Refer.MD: Galen Turcios Exam Time: [...] A1C 5.8(H) <5.7 % [facility] total [facility] 08/04/2020 1:03 PM CDT 08/04/2020 1:04 PM CDT Galen Turcios DO LABORATORY Final Re sult [facility] [address] [place] [address] * COLONOSCOPY (01/17/2019) Documents Scanned SCANNING Final Result from Last 3 Months or Most Recently Relevant to Health Maintenance Insurance [employer] Advance Directives * Full Code (Latest Code Status on File) Date Activated Date Inactivated Comments 12/08/2020 10:08 AM 12/08/2020 3:10 PM Care Teams Bottom Turning Lathe Turner Relationship Specialty [place] [address] [place] [address] PCP - General FAMILY PRACTICE 06/06/18 Giorgio Fernandes MD [address] [place] [id number] Kendy Investigator Utility Bill Complaints CARDIOVASCULAR DISEASE 07/05/18
--- OUTSIDE RECORDS SUMMARY | 2024-11-06 12:04 | XMS_ITS | Clinical Summary ---
Author Organization [facility] Address [address] [place] [address] Phone Care Team Providers Care Polystyrene Molding Machine Tender Name Role Phone Unavailable Primary Care Provider [...] DIABETES HBA1C Q 6 MONTHS 02/03/2021 08/04/2020 RSV VACCINE (60+ or ) (1 - 1-dose 75+ series) 2024 INFLUENZA VACCINE (#1) 2024 PNEUMOCOCCAL VACCINE 50+ YEARS Completed 10/08/2018 , 09/22/2016 Insurance [facility]
--- OUTSIDE RECORDS SUMMARY | 2024-11-06 12:04 | XMS_ITS | Clinical Summary ---
Author Organization [facility] [address] Address [address] [place] [address] Care Team Providers Care Signaling Design Engineer Name Role Phone Cristi Toledo MD Primary Care Provider + [phone] Allergies No known active allergies Medications aspirin [...] syncope 05/16/2022 Coronary artery disease invo lving [place] coronary artery of [place] heart without angina pectoris 02/07/2022 Hypertension associated with diabetes 02/07/2022 Mixed diabetic hyperlipidemi a associated with type 2 diabetes mellitus 02/07/2022 S/P coronary artery stent placement 02/07/2022 Encounters Date Type Department Care Team Description 08/26/2024 Results Follow-Up [facility] [address] [place] [address] Oni Henry MD Transthoracic Echo (TTE) Complete W Doppler/CF 08/25/2024 10:15 AM CDT Ancillary Procedure [facility] Cardiology [address] [place] [address] Coronary artery disease involving [place] coronary artery of [place] heart without angina pectoris; CISNEROS (dyspnea on [...] Visit 65+ 2014 Covid-19 Vaccine (3 - season) 2023, 04/11/2021 Influenza Vaccine (#1) 2024 Lipid Panel 07/28/2025 07/28/2024, 01/07, 07/15/2021 Pneumococcal vaccine 65+ Completed 10/08/2018, 09/07 Procedures Procedure Name Priority Date/Time Associated Diagnosis Comments TRANSTHORACIC ECHO (TTE) COMPLETE W DOPPLER/CF WO CONTRAST Routine 08/25/2024 10:17 AM CDT Coronary artery disease involving [place] coronary artery of [place] heart without angina pectoris CISNEROS (dyspnea on exertion) POCT LIPID PANEL Routine 07/28/2024 9:33 AM CDT Mixed diabetic hyperlipidemia associated with type 2 diabetes mellitus (HCC) Coronary artery disease involving [place] coronary artery of [place] heart without angina pectoris from Last 3 Months or Most Recently Relevant to Health Maintenance Results * TRANSTHORACIC ECHO (TTE) COMPLETE W DOPPLER/CF WO CONTRAST (08/25/2024 10:17 AM CDT) EF Mod BP 64 % CONS SCIMAGE Anatomical Region Laterality Modality Ultrasound 08/25/2024 9:50 AM CDT Narrative 08/25/2024 10:58 AM CDT [facility] [address], [place] [address] [address] [facility] [address], [place] [address] P:[phone] P:[phone] Echocardiographic Report Patient Name: JUANCHO DANG D : 1950 Study Date: 08/25/2024 9:50:13 AM Gender: M Tech: Location: [facility] Provider: ONI HENRY Height(Cm): 178 BSA: 2.18 Weight(Kg): 95.7 Heart Rate: 73 BP: 116 / 74 Quality: Good Order Provider: ONI HENRY PROCEDURES: Echocardiographic Report: Transthoracic echocardiogram with complete 2D, M-Mode, and color Doppler examination. With Strain Analysis. INDICATIONS: I25.10 Atherosclerotic heart disease of [place] coronary artery without angina pectoris and R06.09 [...] FINDINGS: Interpretation Site: Exam was interpreted at [facility]. Left Ventricle: Normal left ventricular systolic [...] valve. Electronically Signed By: Dr. Scott Jiménez [facility] 08/25/2024 10:57:45 AM CDT Procedure Note Scott Jiménez MD - 08/25/2024 [facility] [address] [facility] [address], [place] [address] [address] [facility] [address] [address] P:[phone] P:[phone] Echocardiographic Report Patient Name: JUANCHO DANG D : 1950 Study Date: 08/25/2024 9:50:13 AM Gender: M Tech: Location: [facility] Provider: ONI HENRY Height(Cm): 178 BSA: 2.18 Weight(Kg): 95.7 Heart Rate: 73 BP: 116 / 74 Quality: Good Order Provider: ONI HENRY PROCEDURES: Echocardiographic Report: Transthoracic echocardiogram with complete 2D, M-Mode, and color Dopplerexamination. With Strain Analysis. INDICATIONS: I25.10 Atherosclerotic heart disease of [place] coronary artery withoutangina pectoris and R06.09 Other [...] FINDINGS: Interpretation Site: Exam was interpreted at [facility]. Left Ventricle: Normal left ventricular systolic [...] tricuspidvalve. Electronically Signed By: Dr. Scott Jiménez [facility] 08/25/2024 10:57:45 AM CDT Oni Henry MD [...] Recently Relevant to Health Maintenance Insurance [employer] PPO Care Teams Signaling Design Engineer Relationship Specialty Start Date End Date Cristi Toledo MD PCP - General Family Medicine 09/27/21
[2024-11-06 13:01] LABS: Total Protein Urine Random 11 mg/dL; Ur Ttl Prot Creatinine Ratio 0.10 mg/mg (0-0.20)
[2024-11-06 13:20] LABS: Albumin Level 4.5 g/dL (3.5-5.1); Anion Gap 12 mmol/L (4-12); Blood Urea Nitrogen 17 mg/dL (9-20); Calcium 9.4 mg/dL (8.4-10.2); Carbon Dioxide 22 mmol/L (22-30); Chloride 105 mmol/L (98-107); Estimated Glomerular Filt Rate > 60; Glucose 112 mg/dL (65-110); Potassium 4.4 mmol/L (3.4-5.0); Sodium 139 mmol/L (137-145)
== END 2024-11-06 12:00 | disposition home or self-care (01) ==
PROVIDERS: PCP Family Medicine; Visit Provider Internal Medicine Nephrology
DX: E11.22 Type 2 diabetes mellitus with diabetic chronic kidney disease (principal); I12.9 Hypertensive chronic kidney disease with stage 1 through stage 4 chronic kidney disease, or unspecified chronic kidney disease; N18.31 Chronic kidney disease, stage 3a
CPT/HCPCS: 36415; 80069; 82570; 84156

== ENCOUNTER 2025-03-11 10:34 | Outpatient (CLI) | payer OTHER, SELFPAY ==
[2025-03-11 11:02] LABS: Hematocrit 45.5 % (42.0-52.0); Hemoglobin 14.9 g/dL (14.0-18.0); Mean Corpuscular HGB Conc 32.7 g/dl (32-36); Mean Corpuscular Hemoglobin 28.2 pg (26-34); Mean Corpuscular Volume 86.0 fl (80-100); Platelet Count Result 186 k/mm3 (150-375); Red Blood Count 5.29 M/mm3 (4.6-6.20); White Blood Count 4.9 K/mm3 (4.5-10.0)
[2025-03-11 11:24] LABS: Alanine Aminotransferase 61 U/L (6-50); Albumin Level 4.5 g/dL (3.5-5.1); Alkaline Phosphatase 90 U/L (38-126); Anion Gap 6 mmol/L (4-12); Aspartate Amino Transferase 63 U/L (17-59); Bilirubin,Total 0.9 mg/dL (0.2-1.3); Blood Urea Nitrogen 20 mg/dL (9-20); Calcium 9.4 mg/dL (8.4-10.2); Carbon Dioxide 26 mmol/L (22-30); Chloride 104 mmol/L (98-107); Cholesterol 196 mg/dL (0-200); Estimated Glomerular Filt Rate 56; Glucose 189 mg/dL (65-110); HDL Direct 39 mg/dL; Potassium 4.1 mmol/L (3.4-5.0); Sodium 136 mmol/L (137-145); Total Protein 8.0 g/dL (6.3-8.2); Triglycerides 427 mg/dL (<150)
[2025-03-11 11:41] LABS: MALB Creatinine Ratio 47.0 mg/g (0-30)
[2025-03-11 11:46] LABS: Hemoglobin A1C 6.7 % (<5.7)
[2025-03-11 12:00] LABS: Prostate Specific Antigen 0.5 ng/mL (< OR = 4.0)
--- OUTSIDE RECORDS SUMMARY | 2025-03-11 12:02 | XMS_ITS | Clinical Summary ---
Author Organization [facility] Address [address] [place] [address] Care Team Providers Care Game Designer Name Role Phone MorisjulianaGalen nguyen Ashvin BEAVER Primary Care Provider + Giorgio Fernandes MD Unavailable [phone] Allergies No known active allergies Medications Blood Glucose Monitoring Suppl (BLOOD GLUCOSE MONITOR SYSTEM) w/Device KitIndications:T ype 2 diabetes mellitus without complication, without long-term current use of insulin ([facility]) 1 Units by Does not apply route [...] complication, without long-term current use of insulin ([facility]) USE TO TEST FOUR TIMES DAILY NEEDED [...] complication, without long-term current use of insulin ([facility]) TAKE 1 TABLET (500 MG TOTAL) BY MOUTH DAILY WITH BREAKFAST. PATIENT MUST BE SEEN FOR FURTHER REFILLS 14 tablet 2 Active isosorbide mononitrate ER (IMDUR) 30 MG 24 hr tablet Take 1 tablet (30 mg total) by mouth daily. CALL FOR AN APPOINTMENT 15 tablet 3 Active losartan (COZAAR) 25 MG tabletIndication s:S/P PTCA (percutaneous transluminal coronary angioplasty),Cor onary artery disease involving [place] coronary artery of [place] heart without angina pectoris,Type 2 diabetes mellitus with stage 2 chronic kidney disease, without long-term current use of insulin ([facility]) TAKE 1 TABLET (25 MG TOTAL) BY MOUTH DAILY. CALL FOR AN APPOINTMENT 30 tablet 4 Active Glucose Blood (BLOOD GLUCOSE TEST STRIPS 333) StripIndications :Type 2 diabetes mellitus without complication, without long-term current use of insulin ([facility]) 1 strip by In Vitro route 4 (four) times daily before meals and nightly. TEST BLOOD SUGAR BEFORE MEALS AND AT BEDTIME PATIENT MUST BE SEEN FOR FURTHER REFILLS 100 strip 3 4 Active Active Problems Problem Noted Date Diagnosed Date Other fatigue 11/22/2020 Precordial pain 11/22/2020 Hypertension associated with type 2 diabetes rachael litus 08/03/2020 Hyperlipidemia associated with type 2 diabetes m ellitus 08/03/2020 Overweight 07/19/2018 On statin therapy 07/19/2018 Antiplatelet or antithrombotic long-term use 03/2019 Vertigo 07/19/2018 Vasovagal episode 07/19/2018 Family history of coronary arteriosclerosis 07/08 Type 2 diabetes mellitus wit h chronic kidney disease, without long-term current use of insulin 07/03/2018 Vitamin D deficiency 07/03/2018 Changing skin [...] Tobacco: Former Cigarettes 1.5 15 1 974 - 1988 Smokeless Tobacco: Never Alcohol Use Standard [...] 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 Not on file Not [...] Diabetes: Retinopathy Eye Exam 12/10/2022 12/10/2020, 06/07/2018 RSV Immunization or 60+ Years (1 - 1-dose 75+ series) 2024 PHQ-2 (Physician [place]) 04/09/2024 COVID-19 Vaccine (1 - 2024- season) 2024 Influenza Adult (#1) 2025 DTaP, Tdap and Td Vaccines (1 - Tdap) 05/02/2028 Postponed from 1968 (Per Provider Recommendation) Colorectal Cancer Screening Colonoscopy (10 Years) 01/17/2029 01/17/2019, 01/17/2019 Pneumococcal Vaccine: 50+ Years Completed 10/08/2018, 09/22/2016 AAA SCREENING Completed 11/29/2020, 08/17/2020 Hepatitis A Vaccines Aged Out No long er eligible based on patient's age to complete this topic Meningococcal B Vaccine Aged Out No l [...] CHOLESTEROL 149 MG/DL 07/15/2021 6:24 PM CDT [facility] Comment:DESIRABLE: <200 TRIGLYCERIDES 171 MG/DL 07/15/2021 6:24 PM CDT [facility] Comment:150-199 BORDERLINE H IGH HDL 43 >39 MG/DL 07/15/2021 6:24 PM CDT [facility] LDL (CALCULATED) 72 MG/DL 07/16/19 6:24 PM CDT [facility] Comment:<100 OPTIMAL VLDL CALCULATION 34 MG/DL 07/16/19 6:24 PM CDT [facility] Comment:REFERENCE RANGE NOT ESTABLISHED CHOL/HDL RATIO 3.5 07/15/2021 6:24 PM CDT [facility] Comment:REFERENCE RANGE NOT ESTABLISHED LDL/HDL 1.7 07/15/2021 6:24 PM CDT [facility] Comment:REFERENCE RANGE NOT ESTABLISHED NON HDL CHOLESTEROL 106 MG/DL 07/15/2021 6:24 PM CDT [facility] Comment:REFERENCE RANGE NOT ESTABLISHED 07/15/2021 12:0 0 PM CDT us Naga Moore MD,PHD LABORATORY Final Re sult [facility] [address] [place] [address], [id number] * DIABETIC RETINOPATHY EXAM (NEGATIVE)(SCAN) (12/10/2020) us Documents Scanned SCANNING Final Result [facility] ONBASE * USV AAA SCREENING (11/29/2020 7:44 AM CDT) Anatomical Region Laterality Modality NA Vascular Ultraso und 11/29/2020 7:33 AM CDT Narrative 11/29/2020 11:08 AM CDT [facility] Pat.Name: JOELLE DANG Pat.ID: [id number] .Date: 11/29/2020 Refer.MD: Galen Turcios Exam Time: [...] DUPLEX VASCULAR LAB Pat.Name: JOELLE DANG Pat.ID: [id number] St.Date: 11/29/2020 Refer.MD: Galen Turcios Exam Time: [...] A1C 5.8(H) <5.7 % of total Hgb [facility] 08/04/2020 1:03 PM CDT 08/04/2020 1:04 PM CDT Galen Turcios DO LABORATORY Final Re sult [facility] [address] [place] [address] * COLONOSCOPY (01/17/2019) Documents Scanned SCANNING Final Result from Last 3 Months or Most Recently Relevant to Health Maintenance Insurance [employer]ENCE E[employer]ENCE Advance Directives * Full Code (Latest Code Status on File) Date Activated Date Inactivated Comments 12/08/2020 10:08 AM 12/08/2020 3:10 PM Care Teams Game Designer Relationship Specialty Start Date End Date Galen Turcios DO [address] [place] [address] PCP - General FAMILY PRACTICE 06/06/18 Giorgio Fernandes MD [address] [place] [phone] Kendy Manhole Builder CARDIOVASCULAR DISEASE 07/05/18
--- OUTSIDE RECORDS SUMMARY | 2025-03-11 12:02 | XMS_ITS | Clinical Summary ---
Author Organization [facility] Address [address] [place] [address] Phone Care Team Providers Care Fax Machine Operator Name Role Phone Unavailable Primary Care [...] 50+ YEARS Completed 10/08/2018 , 09/22/2016 Insurance [facility]
--- OUTSIDE RECORDS SUMMARY | 2025-03-11 12:02 | XMS_ITS | Clinical Summary ---
Author Organization [facility] [address] Address [address] [place] [address] Care Team Providers Care Senior Media Director Name Role Phone Cristi Toledo MD Primary Care Provider + [phone] Allergies No known active allergies Medications aspirin 81 mg enteric coated tablet Take 1 tablet (81 mg total) by mouth daily 2 Active metFORMIN XR (GLUCOPHAGE XR) 500 [...] day APPLY TO AFFECTED AREA 4 Active nitroglycerin (NITROSTAT) 0.[address] 1 tablet (0.4 mg total) under the tongue every 5 (five) minutes as needed for chest pain (May take one tab every 5 minutes within 15 minutes) 90 tablet 11 08/28/19 29 Active Active Problems Problem Noted Date Diagnosed Date Atypical chest pain 02/02/2025 Obesity (BMI 30.0-34.9) 07/28/2024 Hypersomnolence 07/28/2024 CISNEROS (dyspnea on exertion) 07/28/2024 H/O syncope 05/16/2022 Coronary artery disease invo lving [place] coronary artery of [place] heart without angina pectoris 02/07/2022 Hypertension associated with diabetes 02/07/2022 Mixed diabetic hyperlipidemi a associated with type 2 diabetes mellitus 02/07/2022 S/P coronary artery stent placement 02/07/2022 Encounters Date Type Department Care Team Description 02/02/2025 10:15 AM CDT Office Visit [facility] Cardiology [address] [place] [address] Oni Craig MD Coronary artery disease involving [place] coronary artery of [place] heart without angina pectoris (Primary Dx); Hypertension associated with diabetes (HCC); Mixed diabetic hyperlipidemia associated with type 2 diabetes mellitus (HCC); H/O syncope; Atypical chest pain from Last 3 Months Surgical History Surgery Date Site/Laterality Comments CARDIAC CATHETERIZATION CORONARY ANGIOPLASTY Medical History Medical History Date Comments Hyperlipidemia Hypertension Diabetes mellitus Coronary artery disease Family History Medical History [...] Sign Reading Time Taken Comments Blood Pressure 120/66 02/02/2025 10:05 AM CDT Pulse 80 02/02/2025 10:05 AM CDT Temperature - - Respiratory Rate 16 02/07/2022 8:25 AM CDT Oxygen Saturation 95% 02/02/2025 10:05 AM CDT Inhaled Oxygen Concentration - - Weight 94.3 kg (208 lb) 02/02/2025 10:05 AM CDT Height 177.8 cm (5' 10) 02/02/2025 10:05 AM CDT Body Mass Index 29.84 02/02/2025 10:05 AM CDT Plan of Treatment Health Maintenance [...] 65+ 2014 Covid-19 Vaccine (3 - season) 2024, 04/11/2021 Influenza Vaccine (#1) 2024 Lipid Panel 07/28/2025 07/28/2024, 01/07, 07/15/2021 Pneumococcal vaccine 65+ Completed 10/08/2018, 09/07 Procedures Procedure Name Priority Date/Time Associated Diagnosis Comments POCT LIPID PANEL Routine 07/28/2024 9:33 AM CDT Mixed diabetic hyperlipidemia associated with type 2 diabetes mellitus (HCC) Coronary artery disease involving [place] coronary artery of [place] heart without angina pectoris from Last 3 Months or Most Recently Relevant to Health Maintenance Results * POCT lipid panel (07/28/2024 9:33 [...] Insurance [employer] PPO Care Teams Senior Media Director Relationship Specialty Start Date End Date Cristi Toledo MD PCP - General Family Medicine 09/27/21
== END 2025-03-11 10:35 | disposition home or self-care (01) ==
PROVIDERS: PCP Family Medicine; Visit Provider Family Medicine
DX: E55.9 Vitamin D deficiency, unspecified (principal); Z12.5 Encounter for screening for malignant neoplasm of prostate; N18.2 Chronic kidney disease, stage 2 (mild); E11.21 Type 2 diabetes mellitus with diabetic nephropathy; E78.2 Mixed hyperlipidemia; Z13.220 Encounter for screening for lipoid disorders
CPT/HCPCS: 36415; 80048; 80061; 80076; 82043; 82306; 83036; 84153; 85027; G0103